=== PATIENT | male | born 1970 | race Caucasian/White ===

== ENCOUNTER 2016-05-20 07:49 | Observation (INO) | payer BC ==
--- NOTE | 2016-05-03 14:46 | DIAGNOSTIC IMAGING REPORT ---
CHEST 2 VIEWS ROUTINE CLINICAL HISTORY: PRE OP TESTING preoperative evaluation COMPARISON STUDY: 11/16/2015 FINDINGS: The bones soft tissues and hemidiaphragms are normal. The cardiomediastinal silhouette is normal. The lungs are clear. The pulmonary vasculature is normal. IMPRESSION: Negative chest. Electronically signed by: Sylvain Snow M.D. 05/03/2016 2:44 PM Dictated Date/Time: 05/03/2016 2:44 PM
[2016-05-03 15:31] LABS: BASO % 0.3 %; BASO ABS # 0.02 K/uL (0-0.2); COMPLETE YES; EOS % 1.5 %; HEMATOCRIT 42.3 % (42-52); IG% 0.6 %; LYMPH % 31.6 %; LYMPH ABS # 2.16 K/uL (1.2-3.4); MEAN CELL VOLUME 86.3 fL (80-100); MEAN CORPUSCULAR HEMOGLOBIN 29.4 pg (25-34); MEAN PLATELET VOLUME 9.6 fL (7.4-10.4); MONO % 4.7 %; NEUT % 61.3 %; PLATELET COUNT 240 K/uL (130-400); WHITE BLOOD COUNT 6.83 K/uL (4.8-10.8)
[2016-05-08 10:32] VITALS: BMI 32.0
--- NOTE | 2016-05-16 12:26 | HISTORY & PHYSICAL EXAMINATION ---
DATE OF ADMISSION: 05/20/2016 CHIEF COMPLAINT: Back and lower extremity difficulty, right leg numbness and tingling 4 months in duration without true injury. HISTORY OF PRESENT ILLNESS: Preston is a 45-year-old gentleman, we initially saw him saw him several weeks ago. He had MRI scan performed, he has discogenic issues, he has back and lower extremity difficulties. He has had injections to his spine. He was here to see me in the office a few weeks ago with back and lower extremity difficulties, particularly on the right hand side. He does walk with a limp. He has adequate reflexes. PAST MEDICAL HISTORY: Positive for spine difficulties, low back difficulties. No kidney, liver issues. No carcinoma. No difficulty with anaesthesia. Denies any abnormal EKG changes, shortness of breath, nausea, vomiting, diabetes, or anemia. He admits to anxiety and numbness, tingling. PAST SURGICAL HISTORY: Shoulder and knee surgery, hernia repair, appendectomy, vasectomy, varicocele. ALLERGIES: RANITIDINE. MEDICATIONS: Include ibuprofen, hydrocodone. SOCIAL HISTORY: Minimal alcohol, no cigarette smoking. REVIEW OF SYSTEMS: Denies blurred vision, double vision, tinnitus, vertigo. Denies any chest pain, angina, palpitations. Denies asthma, wheezing. No nausea, vomiting, urgency, frequency, dysuria. OBJECTIVE: GENERAL: He is alert, oriented, mentation normal. VITAL SIGNS: Blood pressure 130/80, pulse of 80, respiratory rate 16. HEAD, EYES, EARS, NOSE, AND THROAT EXAMINATION: Normal. Skin intact. No adenopathy. HEART: Normal S1, S2. Distant S3. LUNGS: Clear to auscultation. No rales, rhonchi or wheezing. ABDOMEN: Soft, nontender, bowel sounds present. EXTREMITIES: He has pain with straight leg raising on the right hand side, none on the left hand side. He walks with a limp. Knee jerk reflexes and Achilles reflexes 2/4 right and left. No motor loss. No clonus or signs of upper motor neuron issues. Images reviewed demonstrate degenerative changes L4-L5, L5-S1, disc herniation L4-L5 and L5-S1 lumbar spine. DISPOSITION: Laminectomy and decompression L4-L5 and L5-S1 lumbar spine under general anesthetic [facility]. [facility]
[~2016-05-20] VITALS: Ht 172.7 cm; Wt 95.5 kg
[2016-05-20] VITALS (7 sets, daily range): BP systolic 113–134; BP diastolic 79–91; PULSE 76–103; TEMP 36.4–36.8; O2SAT 92–96; Ht 172.7 cm; Wt 95.5 kg
[~2016-05-20 07:49] MED LIST: BUPR-267 PO; CEFAZOLIN 2000 MG/60 ML D5W 60 ML IV SCH; IBUP-1451 PO; LACTATED RINGER'S 1000ML 1,000 ML IV SCH; NSS 1000ML IV SCH; VENL75CA PO
[2016-05-20] MEDS ORDERED: NEOSTIGMINE METHYLSULFATE 5 MG/5 ML SYR ONE (08:04)
[2016-05-20] MEDS ORDERED: MIDAZOLAM HCL 1 MG/ML 2ML VIAL ONE (08:04)
[2016-05-20] MEDS ORDERED: FENTANYL CITRATE INJ 50 MCG/1 ML 2 ML VIAL ONE ×2 (08:04→11:38)
[2016-05-20] MEDS ORDERED: ONDANSETRON INJ 2 MG/ML 2 ML VIAL ONE (08:04)
[2016-05-20] MEDS ORDERED: ROCURONIUM BROMIDE 10 MG/ML 5 ML VIAL ONE (08:04)
[2016-05-20] MEDS ORDERED: LIDOCAINE HCL 2% 2 ML VIAL (20MG/ML) ONE (08:04)
[2016-05-20] MEDS ORDERED: GLYCOPYRROLATE INJ 0.2 MG/ML VIAL ONE (08:04)
[2016-05-20] MEDS ORDERED: DEXAMETHASONE SOD INJ 4 MG/ML VIAL ONE (08:04)
[2016-05-20] MEDS ORDERED: ONDANSETRON INJ 2 MG/ML 2 ML VIAL IV PRN ×2 (08:45→12:45)
[2016-05-20] MEDS ORDERED: EpHEDrine SULFATE INJ 50 MG/ML AMP IV PRN (08:45)
[2016-05-20] MEDS ORDERED: HYDROmorphone INJ 1 MG/ML SYR IV PRN ×3 (08:45→12:45)
[2016-05-20] MEDS ORDERED: ATROPINE SULFATE 0.1 MG/ML 5ML SYR IV PRN (08:45)
[2016-05-20] MEDS ORDERED: PROMETHAZINE HCL INJ 6.25 MG in SODIUM CHLORIDE 0.9% 50ML 50 ML IV PRN (08:45)
[2016-05-20] MEDS ORDERED: GELATIN SPONGE SZ 100 ONE ×2 (10:08→10:11)
[2016-05-20] MEDS ORDERED: VANCOMYCIN HCL 1000MG/20ML VIAL ONE (10:08)
[2016-05-20] MEDS ORDERED: BUPIVACAINE/EPINEPHRINE 0.5% MPF 1:200,000 30 ML VIAL ONE (10:08)
[2016-05-20] MEDS ORDERED: THROMBIN FOR SOLN 20000 UNIT KIT ONE (10:08)
[2016-05-20] MEDS ORDERED: BACITRACIN 50000 UNIT VIAL ONE (10:09)
--- NOTE | 2016-05-20 10:39 | History & Physical Bridge Note ---
H&P Re-Evaluation Bridge Note: I have examined the patient, reviewed the History & Physical and in the interval since the performance of the History & Physical I have noted the following changes of clinical significance: No changes noted
--- NOTE | 2016-05-20 12:30 | DIAGNOSTIC IMAGING REPORT ---
Intraoperative lumbar spine single view CLINICAL HISTORY: L4-S1 LAMINECTOMY AND DISCECTOMY COMPARISON STUDY: No previous studies for comparison. FINDINGS: 1 seconds of fluoroscopic time was utilized. A single intraoperative fluoroscopic spot image is provided for interpretation. This reveals a surgical instrument projected over the posterior elements at the L5 level. IMPRESSION: Intraoperative fluoroscopic spot image for localization purposes. Electronically signed by: Saroj Thompson M.D. 05/20/2016 12:29 PM Dictated Date/Time: 05/20/2016 12:28 PM
--- NOTE | 2016-05-20 12:39 | [facility] Post Operative Brief Note ---
Immediate Operative Summary Operative Date May 20, 2016. Pre-Operative Diagnosis Disc Herniation L4-L5, Degenerative changes L4-S1 Post-Operative Diagnosis Disc Herniation L4-L5, Degenerative changes L4-S1 Procedure(s) Performed L4-L5, L5-S1 Laminectomy and Discectomy Surgeon Dr. Lord [employer] Supervisor Surgeon(s) Varun Ye PA-C Estimated Blood Loss 100 ml Findings 2 level lumbar herniation Specimens none per surgeon Complication(s) None Disposition Recovery Room / PACU
[2016-05-20] MEDS: FENTANYL CITRATE INJ 50 MCG/1 ML 2 ML VIAL IV PRN ×4 (12:42→12:57)
[2016-05-20] MEDS ORDERED: METOCLOPRAMIDE HCL INJ 5 MG/ML 2 ML VIAL IV PRN (12:45)
[2016-05-20] MEDS ORDERED: MAGNESIUM HYDROXIDE SUSP 30 ML UDC PO PRN (12:45)
[2016-05-20] MEDS ORDERED: LORAZEPAM 1 MG TAB PO PRN (12:45)
[2016-05-20] MEDS ORDERED: PROMETHAZINE HCL INJ 12.5 MG in SODIUM CHLORIDE 0.9% 50ML 50 ML IV PRN (12:45)
[2016-05-20] MEDS ORDERED: HYDROCODONE/ACETAMOPHEN 5/325MG TAB PO PRN (12:45)
[2016-05-20] MEDS ORDERED: ACETAMINOPHEN 325 MG TAB PO PRN (12:45)
[2016-05-20] MEDS ORDERED: OXYCODONE/ACETAMINOPHEN 5-325 TAB PO PRN (12:45)
[2016-05-20] MEDS ORDERED: LORAZEPAM INJ 1 MG in SYRINGE 0 ML IV PRN (12:45)
[2016-05-20 13:17] LABS: HEMATOCRIT 43.8 % (42-52)
--- NOTE | 2016-05-20 14:10 | OPERATIVE REPORT ---
DATE OF OPERATION: 05/20/2016 PREOPERATIVE DIAGNOSIS: Disk herniation L4-L5 and L5-S1. No instability. POSTOPERATIVE DIAGNOSIS: Same. PROCEDURES: Included a right-sided L4-L5 discectomy, left-sided L5-S1 discectomy, foraminotomy, partial facetectomy at each level. SURGEON: Dr. Lord. SILVER SERVICE WAITER: Varun Ye PA-C. COMPLICATIONS: Zero. BLOOD LOSS: 100 mL. DESCRIPTION OF PROCEDURE: The patient was taken to the operating room, a general intubated anesthetic provided to the patient, placed prone, prepped and draped sterile. We made a skin incision dissecting the soft tissue, fascial incision, put in a deep self-retaining retractor. We focused at the L4-L5 interval. We kept to the right side only. We preserved all central structures. We did an upgoing partial laminotomy on the right and foraminotomy on the right hand side. We also retracted the dura nerve root in medial direction, we did a formal discectomy at the L4-L5 level. We then went down to the L5-S1 level and did a laminotomy, foraminotomy, partial facetectomy as well. We cleaned out all compressive issues. We used different types of pituitary rongeurs at each and every level, clearing out the disc interspaces. I did not sense any instability. We irrigated thoroughly, closed over some vancomycin powder and a Hemovac drain with 1 Vicryl suture, 2-0 on the subcuticular layer, 3-0 nylon on the skin. Sterile dressings applied. The patient returned to PACU stable. No apparent interoperative complications. Sponge and needle count correct at the close. I attest to the content of the Intraoperative Record and any orders documented therein. Any exceptio ns are noted below.
[2016-05-20] MEDS ORDERED: IV FLUIDS COMPLETED PRN (14:15)
--- NOTE | 2016-05-20 14:17 | Anesthesiology Progress Note ---
Anesthesia Post Op Note Date & Time May 20, 2016 at 14:17 Vital Signs Pain Intensity: 6.0 Vital Signs Past 12 Hours Date Time Temp Pulse Resp B/P Pulse Ox O2 Delivery O2 Flow Rate FiO2 05/20/16 13:40 92 Nasal Cannula 4.0 05/20/16 13:40 92 Nasal Cannula 4.0 05/20/16 13:40 36.7 101 16 128/90 92 Nasal Cannula 4.0 05/20/16 13:26 100 15 93 05/20/16 13:26 100 15 110/93 05/20/16 13:25 117/82 05/20/16 13:25 36.9 117/82 05/20/16 13:21 105 15 05/20/16 13:21 105 15 93 05/20/16 13:21 105 15 05/20/16 13:21 105 15 93 05/20/16 13:20 149/100 05/20/16 13:20 149/100 05/20/16 13:16 104 12 94 05/20/16 13:16 104 12 94 05/20/16 13:16 105 12 05/20/16 13:16 105 12 05/20/16 13:15 110/96 05/20/16 13:15 110/96 05/20/16 13:12 90/55 05/20/16 13:12 90/55 05/20/16 13:11 113 16 88 05/20/16 13:11 113 16 05/20/16 13:11 113 16 05/20/16 13:11 113 16 88 05/20/16 13:10 109 17 05/20/16 13:10 108 17 92 05/20/16 13:05 105 18 05/20/16 13:05 105 18 129/105 92 05/20/16 13:02 135/96 05/20/16 13:00 113 15 05/20/16 13:00 112 15 140/114 94 05/20/16 13:00 Nasal Cannula 4 05/20/16 12:55 97 15 137/102 94 05/20/16 12:55 98 15 05/20/16 12:50 93 12 05/20/16 12:50 93 12 159/129 93 05/20/16 12:45 95 16 05/20/16 12:45 96 16 151/105 93 05/20/16 12:42 143/103 05/20/16 12:40 104 16 05/20/16 12:40 103 16 144/114 93 05/20/16 12:39 175/126 05/20/16 12:35 37 115 18 175/126 95 Mask 10 05/20/16 08:31 36.8 76 20 134/87 96 Room Air Notes Mental Status: alert / awake / arousable, participated in evaluation Pt Amnestic to Procedure: Yes Nausea / Vomiting: adequately controlled Pain: adequately controlled Airway Patency, RR, SpO2: stable & adequate BP & HR: stable & adequate Hydration State: stable & adequate Anesthetic Complications: no major complications apparent
[2016-05-20] MEDS: SODIUM CHLORIDE 0.9% 1000ML 1,000 ML IV SCH (14:31)
[2016-05-20] MEDS: OXYCODONE/ACETAMINOPHEN 5-325 TAB PO PRN (14:36)
[2016-05-20] MEDS: DEXAMETHASONE INJ 10 MG in SYRINGE 0 ML IV SCH ×2 (14:42→21:49)
[2016-05-20] MEDS: KETOROLAC TROMETHAMINE 30 MG/ML VIAL IV SCH ×2 (15:32→21:49)
[2016-05-20] MEDS: CEFAZOLIN IV 2,000 MG in DEXTROSE 5% 50ML 50 ML IV SCH (18:26)
[2016-05-21] MEDS: SODIUM CHLORIDE 0.9% 1000ML 1,000 ML IV SCH (00:03)
[2016-05-21] MEDS: CEFAZOLIN IV 2,000 MG in DEXTROSE 5% 50ML 50 ML IV SCH ×2 (03:29→10:37)
[2016-05-21] MEDS: KETOROLAC TROMETHAMINE 30 MG/ML VIAL IV SCH ×4 (03:30→17:44)
[2016-05-21 04:10] VITALS: BP 117/82; PULSE 83; TEMP 36.3; O2SAT 91
[2016-05-21] MEDS: DEXAMETHASONE INJ 10 MG in SYRINGE 0 ML IV SCH ×3 (05:58→21:49)
[2016-05-21] MEDS ORDERED: BISACODYL 5 MG TABEC PO PRN (06:00)
[2016-05-21] MEDS ORDERED: NURSING VERBAL MED ORDER ONE (06:00)
[2016-05-21] MEDS ORDERED: BISACODYL 10 MG SUPP PR PRN (06:00)
--- NOTE | 2016-05-21 07:35 | Discharge Instructions ---
Discharge Instructions Date of Service May 21, 2016. Admission Reason for Admission: Lumbar Disc Herniation Discharge Discharge Diagnosis / Problem: stenosis Discharge Goals Goal(s): Improve function Activity Recommendations Activity Limitations: as noted below Lifting Limitations: gradually increase as tolerated Exercise/Sports Limitations: until after follow-up appointment May Resume Sexual Activity: after follow-up appointment Shower/Bathe: keep incision dry Driving or Machine Use: home and recover . Instructions / Follow-Up Instructions / Follow-Up MEDICATIONS: Please take your prescriptions as instructed at your pre-op appointment. SPECIAL CARE: The following information is intended to answer some of the common questions and concerns regarding your surgery. Each patient is an individual and receives individual counselling throughout the course of treatment, from diagnosis to surgery all the way through recovery. What follows is not an exhaustive list, but should be a useful guide to some of the common questions and concerns patients have regarding their surgeries. These are not provided to keep you from calling us; rather, they give you something accurate and concrete to reference as you recover from your procedure. If you need us, we are available to you. As always, if you are not sure about something, call us at [phone]. MEDICAL EMERGENCIES: For these conditions, call 911 or go to your local hospital-based Emergency Department - not [facility] or equivalent. * Paralysis * Severe chest pain or difficulty breathing * Swelling or redness of either leg Spine procedures can be rather complex and though complications are rare, they do occur. In such cases, effective advice regarding emergency situations cannot always be addressed over the telephone. You may be referred to the emergency department for more effective management of your problem. Activity Limitations: It is important to give your body time to heal, so please limit your activities : * In general, don't do anything that moves your spine too much. You should avoid contact sports, twisting or heavy lifting while you recover. * 5-10 pounds is all you should attempt to lift. * You should not plan on driving for approximately 3 weeks and you should avoid traveling more than 30-45 minutes at a time. Longer trips should be broken down with walking breaks spaced appropriately. * Physical therapy is not usually required. * Walking and good posture practices will help you recover and regain your function. * Avoid straining or sudden changes in position. * In general, the goal is to take it easy and recover. Don't cause any new problems. Just relax. Showers: * Do not take a bath, use a Jacuzzi or hot tub or otherwise submerge your incision. * It is usually safe to take a shower 4-5 days after your surgery. * Your incision does not require any special creams or ointments. * Simply clean it with soap and water, dry and re-dress with a clean bandage afterwards. Incision: * Keep incision clean, dry and protected until your first follow-up appointment. * Some amount of drainage and redness is normal. Any drainage should be fairly clear and not have a foul odor. * If you feel anything is wrong or you have excessive drainage, please call us. * Your stitches and lacie will be removed 10-14 days after your surgery. At the time of your first post-op visit. * Neck surgeries are typically closed with a suture underneath the skin. The steri-strips over the incision should be maintained until we see you in the office. Bracing: * You may be provided with a back or neck brace to encourage good posture and prevent injury. It will remind you not to do too much as you heal and will alert others to the fact that you have had a surgery. * Back braces may be removed for showers and when you are resting at home. They must be worn when you are walking around for any period of time or for travel. * For neck surgery, you will likely be provided with two cervical collars. The soft collar ([place] or foam rubber) is worn most commonly throughout the day and while sleeping. The plastic collar (provided at the hospital) is for showering/bathing. * Except while eating, collars should remain in place. More specifically, bracing is provided for a purpose and should be worn. * Please obtain your brace or collars prior to your operation and bring them to the hospital with you on the day of surgery. * You should also bring your collars to your post-op appointment with Dr. Lord. You should always take good care of your body and practice healthy habits, especially following surgery. You should: * Follow your doctor's treatment plan * Sit and stand properly with good posture (ears over shoulders, shoulders over hips) Don't slouch * Learn to lift correctly * Exercise regularly (low-impact aerobic exercise is especially good, but check with your doctor first) * Generally, be up and walking for 5-10 minutes at a time at least 3-4 times per day from the day you get home * Increasing walking to tolerance until you can walk for 20-30 minutes at a time * Attain and maintain a healthy body weight * Eat healthy foods ( a well-balanced, low-fat diet rich in fruits and vegetables) and get enough calcium * Avoid excessive use of alcohol When to call our office - If you notice any of the following: * Increased pain not relieve by pain medicine * Fevers greater then 100 degrees F, chills or flu symptoms * Increased redness around incision * Drainage from the incision that is not clear * Any foul smelling drainage * Swelling or fluid collection beneath the skin Miscellaneous: * In the hospital, you may be given a walker or cane for support while walking. These are temporary needs and are intended to prevent injuries due to falls. You may discontinue them when you feel strong and steady enough on your feet. * Sleep in a comfortable position. We find that many patients find a lounge chair or recliner with several pillows to be beneficial in the early post-operative period. * The support stockings should be used for 7-10 days and may be discontinued when you are back to walking more and conducting usual household activities. No problem is insignificant. We are here to help you and get you well. Contact us at [phone]. Definitions: Foraminotomy: If part of the disc or a bone spur (osteophyte) is pressing on a nerve as it leaves the vertebra (through an exit called the foramen), a foraminotomy may be done. Otomy means "to make an opening." A foraminotomy is making the opening of the foramen larger, so the nerve can exit without being compressed. Laminotomy: Similar to the foraminotomy, a laminotomy makes a larger opening, this time in your bony plate protecting your spinal canal and spinal cord (the lamina). The lamina may be pressing on your nerve, so the surgeon may make more room for the nerves using a laminotomy. Laminectomy: Sometimes, a laminotomy is not sufficient. The surgeon may need to remove all or part of the lamina. This procedure is called a laminectomy. This can often be done at many levels without any harmful effects. Current Hospital Diet Patient's current hospital diet: Regular Diet Discharge Diet Recommended Diet: Regular Diet Fluid Restriction: None Procedures Procedures Performed: L4-L5, L5-S1 Laminectomy and Discectomy Pending Studies Studies pending at discharge: no Medical Emergencies . Who to Call and When: Medical Emergencies: If at any time you feel your situation is an emergency, please call 911 immediately. . Non-Emergent Contact Non-Emergency issues call your: Surgeon Call Non-Emergent contact if: wound has increased pain . "Provider Documentation" section prepared by Juarez Lord. VTE Core Measure Inpt VTE Proph given/why not?: Treatment not indicated
--- NOTE | 2016-05-21 07:43 | PROGRESS NOTE ---
DATE: 05/21/2016 SUBJECTIVE: Moderate complaints of pain and some urinary retention. Alert and oriented. OBJECTIVE: Vital signs are stable. Decreased bowel sounds. No shortness of breath. ASSESSMENT: Status post two-level lumbar spine laminectomy, discectomy L4-L5 and L5-S1. DISPOSITION: We will Preston up today with physical therapy. Once he passes physical therapy, we should be able to get him home tomorrow morning, which would be the .
[2016-05-21 07:58] VITALS: BP 130/88; PULSE 76; TEMP 36.4; O2SAT 91
[2016-05-21] MEDS: BuPROPion SR 150 MG TABCR PO SCH (09:02)
[2016-05-21] MEDS: POLYETHYLENE (MIRALAX) 17 GM PACK PO SCH (09:03)
[2016-05-21] MEDS: VENLAFAXINE HCL XR 75 MG CAPXR PO SCH (09:03)
[2016-05-21 09:40] VITALS: BP 128/83; PULSE 85; O2SAT 94
[2016-05-21] MEDS: OXYCODONE/ACETAMINOPHEN 5-325 TAB PO PRN ×2 (10:35→17:44)
--- NOTE | 2016-05-21 10:49 | Anesthesiology Progress Note ---
Anesthesia Post Op Note Date & Time May 21, 2016 at 10:49 Vital Signs Pain Intensity: 5.0 Vital Signs Past 12 Hours Date Time Temp Pulse Resp B/P Pulse Ox O2 Delivery O2 Flow Rate FiO2 05/21/16 08:05 Room Air 05/21/16 07:58 36.4 76 18 130/88 91 Room Air 05/21/16 04:10 36.3 83 18 117/82 91 Room Air 05/21/16 00:00 Room Air 05/20/16 22:55 36.4 98 16 113/79 92 Room Air Notes Mental Status: alert / awake / arousable, participated in evaluation Pt Amnestic to Procedure: Yes Nausea / Vomiting: adequately controlled Pain: adequately controlled Airway Patency, RR, SpO2: stable & adequate BP & HR: stable & adequate Hydration State: stable & adequate Anesthetic Complications: no major complications apparent
[2016-05-21 12:35] VITALS: BP 131/76; PULSE 83; TEMP 36.5
[2016-05-21 16:10] VITALS: BP 132/92; PULSE 94; TEMP 36.4; O2SAT 94
[2016-05-21] MEDS ORDERED: IBUPROFEN 800 MG TAB PO PRN (21:00)
[2016-05-21 23:15] VITALS: BP 118/73; PULSE 87; TEMP 36.4; O2SAT 92
[2016-05-22 03:35] VITALS: BP 108/69; PULSE 76; TEMP 36.4; O2SAT 95
[2016-05-22 07:15] VITALS: BP 132/94; PULSE 76; TEMP 36.4; O2SAT 95
[2016-05-22] MEDS: POLYETHYLENE (MIRALAX) 17 GM PACK PO SCH (07:44)
[2016-05-22] MEDS: BuPROPion SR 150 MG TABCR PO SCH (07:44)
[2016-05-22] MEDS: VENLAFAXINE HCL XR 75 MG CAPXR PO SCH (07:44)
[2016-05-22 07:45] VITALS: BP 132/94; PULSE 76; TEMP 36.4; O2SAT 95
[2016-05-22] MEDS: OXYCODONE/ACETAMINOPHEN 5-325 TAB PO PRN (07:45)
--- NOTE | 2016-05-22 08:20 | DISCHARGE SUMMARY ---
SUBJECTIVE: Minimal complaints of pain. Alert, oriented. Denies any shortness of breath, chest pain, calf tenderness. OBJECTIVE: 36.4 temperature, pulse 76, hemoglobin 15.0. ASSESSMENT: Status post lumbar spine surgery, improved, stable short run. DISPOSITION: Instructions, precautions, education. Discharged home later today. Dressing change. He has prescriptions on his chart. We should see him back in the office in approximately 10 days.
== END 2016-05-22 09:53 | disposition home or self-care (01) ==
LOC: ENRESERVTM → ENRESERVDT → C.ACU 07:49 → INTOOBSV 12:40 → C.3E 12:40
PROVIDERS: ADMIT Orthopaedic Surgery Orthopaedic Surgery of the Spine; ATTEND Orthopaedic Surgery Orthopaedic Surgery of the Spine
DX: M51.27 Other intervertebral disc displacement, lumbosacral region (principal); M51.26 Other intervertebral disc displacement, lumbar region

== ENCOUNTER 2016-07-16 11:49 | Emergency (ER) | payer BC ==
[~2016-07-16] VITALS: Ht 172.7 cm; Wt 100.0 kg
[~2016-07-16 11:49] MED LIST changes: -CEFAZOLIN 2000 MG/60 ML D5W 60 ML IV SCH; -LACTATED RINGER'S 1000ML 1,000 ML IV SCH; -NSS 1000ML IV SCH
[2016-07-16 11:52] VITALS: TEMP 36.3; Ht 172.7 cm; Wt 100.0 kg
[2016-07-16] MEDS ORDERED: ONDANSETRON INJ 2 MG/ML 2 ML VIAL IV STA (12:09)
[2016-07-16] MEDS ORDERED: SODIUM CHLORIDE 0.9% 1000ML 1,000 ML IV STA (12:09)
--- NOTE | 2016-07-16 12:13 | EMERGENCY ROOM VISIT NOTE ---
History Report prepared by Caryl: Zaina Mejia Under the Supervision of: Dr. Melvin Swanson D.O. First contact with patient: 12:02 Chief Complaint: BACK PAIN Stated Complaint: BACK PAIN-SURG. END OF APRIL-POP IN BACK History of Present Illness The patient is a 46 year old male who presents to the Emergency Room with complaints of worsening lower back pain beginning just prior to arrival. The patient was throwing a bag into the washing machine when he stood up and felt a pop in his back. He notes that he experienced back surgery on May [address] Lord. He had two herniated disc at L4-L5. The patient states that he called Dr. Lord office and was told to come to the ED. He denies numbness in legs, fever, nausea or vomiting. 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 A total of 10 systems reviewed and were otherwise negative. Past Medical & Surgical Medical Problems: (1) Depression (2) Lumbar disc disease with radiculopathy (3) S/P hernia repair (4) Ureterolithiasis Surgical Problems: (1) S/P appendectomy Family History No significant family history Social History Smoking Status: Never Smoker Alcohol Use: none Drug Use: none Marital Status: Housing Status: lives with family Occupation Status: employed Current/Historical Medications Scheduled Bupropion Hcl (Bupropion Hcl Er), 150 MG PO QAM Omeprazole (Prilosec), 20 MG PO DAILY Prednisone (Prednisone Tab), 40 MG PO DAILY Venlafaxine Hcl (Effexor Xr), 4 CAP PO QAM Scheduled PRN Ibuprofen Tab (Motrin), 800 MG PO Q12 PRN for Pain Oxycodone Immediate Rel Tab (Roxicodone Ir), 10 MG PO Q4H PRN for Severe Pain Allergies Coded Allergies: Ranitidine (Verified Adverse Reaction, Intermediate, chest pain, 05/20/16) Physical Exam Vital Signs Date Time Temp Pulse Resp B/P Pulse Ox O2 Delivery O2 Flow Rate FiO2 07/16/16 15:52 94 Nasal Cannula 2.0 07/16/16 15:40 78 18 149/96 88 Room Air 07/16/16 13:41 78 18 143/102 96 07/16/16 11:52 36.3 91 18 154/99 94 Room Air Physical Exam GENERAL: Patient is awake, alert, very anxious and appearing to be uncomfortable. EARS, NOSE, MOUTH AND THROAT: The nose is without any evidence of any deformity. Mucous membranes are moist tongue is midline NECK: The neck is nontender and supple. RESPIRATORY: Normal respiratory effort is noted there is no evidence of wheezing rhonchi or rales CARDIOVASCULAR: Regular rate and rhythm noted there no murmurs rubs or gallops normal S1 normal S2 GASTROINTESTINAL: The abdomen is soft. Bowel sounds are present in all quadrants. Abdomen is nontender BACK: Low lumbar tenderness to palpation, range of motion illicit to pain, palpation site noted, no drainage or erythema. MUSCULOSKELETAL/EXTREMITIES: There is no evidence of gross deformity full range of motion is noted in the hips and shoulders SKIN: There is no obvious evidence of any rash. There are no petechiae, pallor or cyanosis noted. NEUROLOGIC: Patient is awake alert and oriented x3 strength is symmetric patellar reflexes are 2+ bilaterally, Achilles tendon reflex +2 bilaterally, great toe strength symmetric. Medical Decision & Procedures ER Provider Diagnostic Interpretation: MRI results as stated below per my review and radiologist interpretation. LUMBAR SPINE MRI HISTORY: Back pain severe LBP, sent by ortho TECHNIQUE: Multiplanar multisequence MRI of the lumbar spine was performed without the use of contrast. COMPARISON: None FINDINGS: For the purpose of the report the L5-S1 disc space will be located on axial image 23 of 25. Moderate degenerative disc change L4-L5 and L5-S1. Mass consistent with posterior laminectomy the L4-L5 level. L1-L2: No significant central canal or neural foraminal narrowing. L2-L3: No significant central canal or neural foraminal narrowing. L3-L4: Mild left central disc bulge. Minimal impact anterior aspect of the thecal sac on the left. L4-L5: Right posterior hemilaminotomy. Right central disc herniation with moderate impact anterior aspect thecal sac. Neuroforamina show minimal narrowing bilaterally. L5-S1: Left posterior hemilaminotomy. Mild broad-based disc herniation. Minimal impact anterior thecal sac. IMPRESSION: 1. Findings consistent with posterior hemilaminotomies at L4-L5 and L5-S1 2. Right central disc herniation L4-L5 with moderate impact anterior thecal sac 3. Broad-based disc herniation considered mild L5-S1. Electronically signed by: Sylvain Snow M.D. 07/16/2016 3:44 PM Dictated Date/Time: 07/16/2016 3:39 PM Laboratory Results 07/16/16 12:34 Red Blood Count 5.22, Mean Corpuscular Volume 89.5, Mean Corpuscular Hemoglobin 29.5, Mean Corpuscular Hemoglobin Concent 33.0, Mean Platelet Volume 9.9, Neutrophils (%) (Auto) 51.2, Lymphocytes (%) (Auto) 39.2, Monocytes (%) (Auto) 7.1, Eosinophils (%) (Auto) 1.6, Basophils (%) (Auto) 0.5, Neutrophils # (Auto) 2.83, Lymphocytes # (Auto) 2.17, Monocytes # (Auto) 0.39, Eosinophils # (Auto) 0.09, Basophils # (Auto) 0.03 07/16/16 12:34 Test 07/16/16 12:34 White Blood Count 5.53 K/uL (4.8-10.8) Red Blood Count 5.22 M/uL (4.7-6.1) Hemoglobin 15.4 g/dL (14.0-18.0) Hematocrit 46.7 % (42-52) Mean Corpuscular Volume 89.5 fL (80-100) Mean Corpuscular Hemoglobin 29.5 pg (25-34) Mean Corpuscular Hemoglobin Concent 33.0 g/dl (32-36) Platelet Count 246 K/uL (130-400) Mean Platelet Volume 9.9 fL (7.4-10.4) Neutrophils (%) (Auto) 51.2 % Lymphocytes (%) (Auto) 39.2 % Monocytes (%) (Auto) 7.1 % Eosinophils (%) (Auto) 1.6 % Basophils (%) (Auto) 0.5 % Neutrophils # (Auto) 2.83 K/uL (1.4-6.5) Lymphocytes # (Auto) 2.17 K/uL (1.2-3.4) Monocytes # (Auto) 0.39 K/uL (0.11-0.59) Eosinophils # (Auto) 0.09 K/uL (0-0.5) Basophils # (Auto) 0.03 K/uL (0-0.2) RDW Standard Deviation 41.7 fL (36.4-46.3) RDW Coefficient of Variation 12.8 % (11.5-14.5) Immature Granulocyte % (Auto) 0.4 % Immature Granulocyte # (Auto) 0.02 K/uL (0.00-0.02) Anion Gap 5.0 mmol/L (3-11) Est Creatinine Clear Calc Drug Dose 94.1 ml/min Estimated GFR () 91.5 Estimated GFR (Non- 79.0 BUN/Creatinine Ratio 18.2 (10-20) Calcium Level 8.9 mg/dl (8.5-10.1) Total Bilirubin 0.4 mg/dl (0.2-1) Direct Bilirubin < 0.1 mg/dl (0-0.2) Aspartate Amino Transf (AST/SGOT) 21 U/L (15-37) Alanine Aminotransferase (ALT/SGPT) 34 U/L (12-78) Alkaline Phosphatase 57 U/L (45-117) Total Protein 7.5 gm/dl (6.4-8.2) Albumin 4.0 gm/dl (3.4-5.0) Lipase 325 U/L (73-393) Laboratory results per my review. Medications Administered Medications (Trade) Dose Ordered Sig/Laurie Route Start Time Stop Time Status Last Admin Dose Admin Sodium Chloride (Nss 1000ml) 1,000 ml @ 200 mls/hr Q5H STAT IV 07/16/16 12:09 07/16/16 17:08 07/16/16 12:52 200 MLS/HR Morphine Sulfate (MoRPHine SULFATE INJ) 4 mg Q15M PRN IV 07/16/16 12:15 07/30/16 12:14 07/16/16 15:47 4 MG Ondansetron HCl (Zofran Inj) 4 mg NOW STAT IV 07/16/16 12:09 07/16/16 12:11 DC 07/16/16 12:53 4 MG Dexamethasone Sodium Phosphate (Decadron Inj) 10 mg NOW ONCE IV 07/16/16 12:15 07/16/16 12:16 DC 07/16/16 12:53 10 MG Hydromorphone HCl (Dilaudid Inj) 1 mg Q30M PRN IV 07/16/16 13:30 07/30/16 13:29 07/16/16 14:43 1 MG ED Course 1205: The patient was evaluated in room B3. A complete history and physical examination were performed. 1209: Zofran Inj 4 mg IV, Sodium Chloride 1,000 ml @ 200 mls/hr IV. 1215: Decadron Inj 10 mg IV, Morphine Sulfate Inj 4 mg IV. 1330: Dilaudid Inj 1 mg IV. 1607: I spoke with Dr. Lord - Orthopedic Surgery about the patient. He recommends pain management and a course of steroids. He will follow up with the patient in the office this week. 1625: Upon reevaluation, the patient is hemodynamically stable. I discussed the results and treatment plan with him. He verbalized agreement of the treatment plan. He was discharged home. Medical Decision Differential diagnosis: Etiologies such as musculoskeletal, disc herniation, fracture, aortic disease, metastatic disease, cord compression, discitis, infection, renal colic, gastrointestinal, acute exacerbation of chronic back pain, sciatica, cauda equina, as well as others were entertained. Nursing notes reviewed. Patient's previous electronic medical records reviewed. The patient is a 46-year-old male who is 2 months status post lumbar spine surgery for lumbar disc disease. The patient presented to the emergency department with acute low back pain. The pain appears to be localized in the lower lumbar spine. His reflexes were intact. Because of the severity of pain and his recent surgery MRI was obtained. I discussed the patient's laboratory and radiographic studies with him. The patient was treated with IV fluids IV pain medicine and IV antiemetics. On subsequent reevaluation he was feeling much better still had significant pain. I discussed his case with his primary back spinal specialist. At this time I would recommend the patient follow-up with his orthopedic programming specialist this week. He does have a scheduled appointment for Friday and he was encouraged to keep this appointment. He was also encouraged to call in the morning to try to schedule an earlier appointment if symptoms are not significantly improved with rest and conservative methods. The patient was encouraged to rest and avoid any strenuous activity. He was also encouraged to continue all medications as prescribed. He was also encouraged to return to the emergency department immediately if symptoms change worsen or the need arises. [place] Drug Monitoring Program Search Results: patient reviewed within database, no issues identified Consults Time Called: 1605 Consulting Physician: Dr. Lord - Orthopedic Surgery Returned Call: [phone] Lord - Orthopedic Surgery about the patient. He recommends pain management and a course of steroids. He will follow up with the patient in the office this week. Impression Primary Impression: Low back pain Additional Impression: Lumbar disc herniation Scribe Attestation The scribe's documentation has been prepared under my direction and personally reviewed by me in its entirety. I confirm that the note above accurately reflects all work, treatment, procedures, and medical decision making performed by me. Departure Information Dispostion Home / Self-Care Prescriptions Prednisone (Prednisone Tab) 20 Mg Tab 40 MG PO DAILY, #10 TAB Prov: Melvin Swanson, DO 07/16/16 Omeprazole (Prilosec) 20 Mg Capcr 20 MG PO DAILY, #30 CAP Prov: Melvin Swanson, DO 07/16/16 Oxycodone Immediate Rel Tab (ROXICODONE IR) 5 Mg Tab 10 MG PO Q4H Y for Severe Pain, #25 TAB Prov: Melvin Swanson, DO 07/16/16 Referrals Ariane Ortez PA-C (PCP) Forms HOME CARE DOCUMENTATION FORM, IMPORTANT VISIT INFORMATION, Work Instructions Patient Instructions ED Back Pain Acute Chronic, My [facility] Additional Instructions Call your back specialist in the morning to schedule a follow-up appointment for this week. Rest and avoid any strenuous activity. Continue taking Motrin and Tylenol as directed for mild pain. Continue all other medications as prescribed. Problem Qualifiers Primary Impression: Low back pain Chronicity: acute Back pain laterality: bilateral Sciatica presence: without sciatica Qualified Codes: M54.5 - Low back pain
[2016-07-16] MEDS ORDERED: DEXAMETHASONE SOD INJ 10 MG/ML VIAL IV ONE (12:15)
[2016-07-16 12:54] LABS: BASO % 0.5 %; BASO ABS # 0.03 K/uL (0-0.2); COMPLETE YES; EOS % 1.6 %; HEMATOCRIT 46.7 % (42-52); IG% 0.4 %; LYMPH % 39.2 %; LYMPH ABS # 2.17 K/uL (1.2-3.4); MEAN CELL VOLUME 89.5 fL (80-100); MEAN CORPUSCULAR HEMOGLOBIN 29.5 pg (25-34); MEAN PLATELET VOLUME 9.9 fL (7.4-10.4); MONO % 7.1 %; NEUT % 51.2 %; PLATELET COUNT 246 K/uL (130-400); RED BLOOD COUNT 5.22 M/uL (4.7-6.1); WHITE BLOOD COUNT 5.53 K/uL (4.8-10.8)
[2016-07-16] MEDS: MoRPHine SULFATE 4 MG/ML 1 ML CARP\\VIAL IV PRN ×3 (12:54→15:47)
[2016-07-16 13:12] LABS: ALT/SGPT 34 U/L (12-78); AST/SGOT 21 U/L (15-37); BLOOD UREA NITROGEN 20 mg/dl (7-18); BUN/CREATININE RATIO 18.2 (10-20); CALCIUM 8.9 mg/dl (8.5-10.1); CARBON DIOXIDE 29 mmol/L (21-32); CHLORIDE 111 mmol/L (98-107); GLUCOSE 92 mg/dl (70-99); POTASSIUM 4.4 mmol/L (3.5-5.1); SODIUM 145 mmol/L (136-145)
[2016-07-16 13:14] LABS: ALKALINE PHOSPHATASE 57 U/L (45-117)
[2016-07-16] MEDS: HYDROmorphone INJ 1 MG/ML SYR IV PRN ×2 (13:41→14:43)
--- NOTE | 2016-07-16 15:45 | DIAGNOSTIC IMAGING REPORT ---
LUMBAR SPINE MRI HISTORY: Back pain severe LBP, sent by ortho TECHNIQUE: Multiplanar multisequence MRI of the lumbar spine was performed without the use of contrast. COMPARISON: None FINDINGS: For the purpose of the report the L5-S1 disc space will be located on axial image 23 of 25. Moderate degenerative disc change L4-L5 and L5-S1. Mass consistent with posterior laminectomy the L4-L5 level. L1-L2: No significant central canal or neural foraminal narrowing. L2-L3: No significant central canal or neural foraminal narrowing. L3-L4: Mild left central disc bulge. Minimal impact anterior aspect of the thecal sac on the left. L4-L5: Right posterior hemilaminotomy. Right central disc herniation with moderate impact anterior aspect thecal sac. Neuroforamina show minimal narrowing bilaterally. L5-S1: Left posterior hemilaminotomy. Mild broad-based disc herniation. Minimal impact anterior thecal sac. IMPRESSION: 1. Findings consistent with posterior hemilaminotomies at L4-L5 and L5-S1 2. Right central disc herniation L4-L5 with moderate impact anterior thecal sac 3. Broad-based disc herniation considered mild L5-S1. Electronically signed by: Sylvain Snow M.D. 07/16/2016 3:44 PM Dictated Date/Time: 07/16/2016 3:39 PM
[2016-07-16] MEDS ORDERED: OXYC1TAB3 PO (16:12)
[2016-07-16] MEDS ORDERED: PRED20TA2 PO (16:12)
[2016-07-16] MEDS ORDERED: OMEP20CA59 PO (16:12)
[2016-07-16 16:32] VITALS: BP 150/103; PULSE 71; O2SAT 92
== END 2016-07-16 16:46 | disposition home or self-care (01) ==
LOC: C.EDB 11:50
DX: M54.5 Low back pain (principal); Z98.890 Other specified postprocedural states; F32.9 Major depressive disorder, single episode, unspecified; Z87.442 Personal history of urinary calculi; Z79.899 Other long term (current) drug therapy

== ENCOUNTER → 2016-09-05 | Outpatient (CLI) | payer BC ==
[2016-09-05 16:36] LABS: BASO % 0.4 %; BASO ABS # 0.03 K/uL (0-0.2); COMPLETE YES; EOS % 0.6 %; HEMATOCRIT 45.8 % (42-52); IG% 0.5 %; LYMPH % 34.9 %; LYMPH ABS # 2.71 K/uL (1.2-3.4); MEAN CELL VOLUME 87.4 fL (80-100); MEAN CORPUSCULAR HEMOGLOBIN 28.8 pg (25-34); MEAN PLATELET VOLUME 9.9 fL (7.4-10.4); MONO % 6.2 %; NEUT % 57.4 %; PLATELET COUNT 276 K/uL (130-400); RED BLOOD COUNT 5.24 M/uL (4.7-6.1); WHITE BLOOD COUNT 7.76 K/uL (4.8-10.8)
[2016-09-05 17:07] LABS: BLOOD UREA NITROGEN 18 mg/dl (7-18); GLUCOSE 73 mg/dl (70-99)
[2016-09-05 17:08] LABS: BUN/CREATININE RATIO 13.6 (10-20); CALCIUM 9.4 mg/dl (8.5-10.1); CARBON DIOXIDE 26 mmol/L (21-32); CHLORIDE 106 mmol/L (98-107); SODIUM 140 mmol/L (136-145)
== END | disposition home or self-care (01) ==
LOC: C.LAB 15:25
PROVIDERS: ATTEND Orthopaedic Surgery Orthopaedic Surgery of the Spine
DX: Z01.812 Encounter for preprocedural laboratory examination (principal)

== ENCOUNTER 2016-09-30 05:48 | Inpatient (IN) | payer BC ==
[2016-09-03 15:40] VITALS: BMI 32.0
[~2016-09-30] VITALS: Ht 172.7 cm; Wt 95.5 kg
[2016-09-30] VITALS (16 sets, daily range): BP systolic 113–162; BP diastolic 73–113; PULSE 71–123; TEMP 36.4–36.8; O2SAT 88–97; Ht 172.7 cm; Wt 95.5 kg
[2016-09-30] MEDS ORDERED: CEFAZOLIN 2000 MG/60 ML D5W IV SCH (06:00)
[2016-09-30] MEDS ORDERED: LACTATED RINGER'S 1000ML 1,000 ML IV SCH (06:00)
[2016-09-30] MEDS ORDERED: NSS 1000ML IV SCH (06:00)
[2016-09-30] MEDS ORDERED: NEOSTIGMINE METHYLSULFATE 5 MG/5 ML SYR ONE (07:05)
[2016-09-30] MEDS ORDERED: MIDAZOLAM HCL 1 MG/ML 2ML VIAL ONE (07:05)
[2016-09-30] MEDS ORDERED: FENTANYL CITRATE INJ 50 MCG/1 ML 2 ML VIAL ONE ×2 (07:05→11:12)
[2016-09-30] MEDS ORDERED: HYDROmorphone INJ 2 MG/ML SYR/VIAL ONE (07:05)
[2016-09-30] MEDS ORDERED: ONDANSETRON INJ 2 MG/ML 2 ML VIAL ONE (07:05)
[2016-09-30] MEDS ORDERED: LIDOCAINE HCL 2% 2 ML VIAL (20MG/ML) ONE (07:05)
[2016-09-30] MEDS ORDERED: SODIUM CHLORIDE 0.9% INJ 10 ML VIAL ONE (07:05)
[2016-09-30] MEDS ORDERED: LARYING-O-JET KIT (LTA) ONE ×2 (07:05)
[2016-09-30] MEDS ORDERED: DEXAMETHASONE SOD INJ 4 MG/ML VIAL ONE (07:05)
[2016-09-30] MEDS ORDERED: ROCURONIUM BROMIDE 10 MG/ML 5 ML VIAL ONE ×2 (07:05→09:31)
[2016-09-30] MEDS ORDERED: GLYCOPYRROLATE INJ 0.2 MG/ML VIAL ONE ×2 (07:05→09:31)
[2016-09-30] MEDS ORDERED: PROPOFOL IV EMULSION 10 MG/ML 20 ML VIAL IV ONE (07:05)
--- NOTE | 2016-09-30 07:05 | History and Physical ---
History & Physical Date Sep 30, 2016. Chief Complaint Back pain and lower extremity pain instability History of Present Illness The patient is a 46 year old male with complaints of back and lower extremity difficulties. Inability to stand distances walk distances. Pain with flexion- extension and with almost every day activity. Past Medical/Surgical History Medical Problems: (1) Anxiety disorder (2) Depression (3) Dyslipidemia (4) Lumbar disc disease with radiculopathy (5) S/P hernia repair (6) Ureterolithiasis Surgical Problems: (1) S/P appendectomy Additional History Hepatic Disease: No Endocrine Disorder: No Kidney Disease: No Hypertension: No Heart Disease: No Bleeding Tendencies: No Infectious Diseases: No Allergies Coded Allergies: Ranitidine (Verified Adverse Reaction, Intermediate, chest pain, 09/30/16) Home Medications Scheduled Bupropion Hcl (Bupropion Hcl Er), 150 MG PO QAM Venlafaxine Hcl (Effexor Xr), 300 MG PO QAM Scheduled PRN Ibuprofen Tab (Motrin), 800 MG PO Q12 PRN for Pain Physical Examination Skin: warm/dry Eyes: normal inspection ENT: normal ENT inspection Neck: supple Respiratory/Chest: lungs clear Cardiovascular: regular rate, rhythm Abdomen / GI: normal bowel sounds Back: normal inspection Genitourinary - Male: normal male genitalia Neurologic/Psych: no motor/sensory deficits Diagnosis 2 level disc herniations lumbar spine L4 5 5 S1 with 2 level spinal instability ASA Classification: ASA Class III Plan of Treatment Laminectomy and fusion L4 5 and L5-S1
[2016-09-30] MEDS ORDERED: THROMBIN FOR SOLN 20000 UNIT KIT ONE ×2 (07:10→07:12)
[2016-09-30] MEDS ORDERED: GELATIN SPONGE SZ 100 ONE ×3 (07:10→08:57)
[2016-09-30] MEDS ORDERED: BUPIVACAINE/EPINEPHRINE 0.5% MPF 1:200,000 10 ML VIAL ONE (07:11)
[2016-09-30] MEDS ORDERED: VANCOMYCIN HCL 1000MG/20ML VIAL ONE (07:11)
[2016-09-30] MEDS ORDERED: BACITRACIN 50000 UNIT VIAL ONE (07:12)
[2016-09-30] MEDS ORDERED: LABETALOL HCL IV 5 MG/ML 20ML IV PRN (08:15)
[2016-09-30] MEDS ORDERED: ONDANSETRON INJ 2 MG/ML 2 ML VIAL IV PRN ×2 (08:15→11:00)
[2016-09-30] MEDS ORDERED: ATROPINE SULFATE 0.1 MG/ML 5ML SYR IV PRN (08:15)
[2016-09-30] MEDS ORDERED: MINERAL OIL LIGHT 10 ML BTL ONE (09:59)
--- NOTE | 2016-09-30 10:33 | DIAGNOSTIC IMAGING REPORT ---
INTRAOPERATIVE FLUOROSCOPIC IMAGES OF THE SPINE CLINICAL HISTORY: L4-S1 laminectomy and fusion. COMPARISON STUDY: Lumbar spine radiograph June 27, 2016. Fluoroscopy time: 11 seconds. FINDINGS: 2 intraoperative fluoroscopic images demonstrate L4-L5 and L5-S1 discectomies with interbody spacer placement. There is posterior decompression. Pedicle screws at the L4, L5 and S1 levels are noted. IMPRESSION: Fluoroscopic images demonstrating L4-L5 and L5-S1 discectomies and L4-S1 pedicle screw fusion. Electronically signed by: López Tapia M.D. 09/30/2016 10:32 AM Dictated Date/Time: 09/30/2016 10:31 AM
[2016-09-30] MEDS ORDERED: SODIUM CHLORIDE 0.9% 1000ML 1,000 ML IV SCH (10:49)
--- NOTE | 2016-09-30 10:59 | [facility] Operative Report ---
Operative Report Operative Date Sep 30, 2016. Pre-Operative Diagnosis 2 level disc herniations lumbar spine L4 5 5 S1 with 2 level spinal instability Post-Operative Diagnosis 2 level disc herniations lumbar spine L4 5 5 S1 with 2 level spinal instability Procedure(s) Performed Laminectomy and Fusion L4-5, L5-S1 Surgeon Dr. Lord Endorsement Clerk Surgeon(s) Varun Ye PA-C Estimated Blood Loss 690 cc Findings Disc herniation L4 5 and L5-S1 Specimens none per surgeon Complication(s) None Disposition Recovery Room / PACU Indications Two-level spinal pathology L4 5 and L5-S1 Description of Procedure Description of the procedure Surgeon Hong events and promotions assistant Varun Paniagua PAC. Complications 0 sponge and needle count correct at the close of procedure. Donated blood loss 500 mL. She was taken to the operative room a general intubated anesthetic provided to the patient placed prone scrubbed prepped draped sterile. We used the same incision from prior surgery a skin incision fashion incision. We use revision strategies and off the lamina of the sacrum L5 and L4 with perfect visualization. We got pedicle screws into the sacrum 5 and 4 lumbar spine bilaterally. The placement of the pedicle screws we safely decompress the spinal canal with revision strategies strategies. Wrist used curettes and Marilou safely ambulate interbody device at 5 S1 interval back in the dura over doing a complete discectomy L5-S1. We disabled up at L4 5 repair the endplates at the 5 interspace we placed a 9 mm high by device 26 mm in length. 45 interval we are able to get and 11 mm height interbody device I the Hundo and millimeters wide. Interspaces were packed prior to insertion of the interbody device with. Tighten down the construct lordosis was restored. The graft we irrigated with approximately 500 mL of fluid we bone graft other transverse processes the bone was impregnated with vancomycin. Her graft fascia was closed over Hemovac drain and over Gelfoam and over vancomycin powder. This was closed with 1 Vicryl suture. Subcuticular layer closed with 2-0 Vicryl suture also over vancomycin powder was closed with 3-0 nylon suture sterile dressing applied the drain activated. Patient returned to PACU improved stable condition. 0 complications I attest to the content of the Intraoperative Record and any orders documented therein. Any exceptions are noted below.
[2016-09-30] MEDS ORDERED: METOCLOPRAMIDE HCL INJ 5 MG/ML 2 ML VIAL IV PRN (11:00)
[2016-09-30] MEDS ORDERED: ACETAMINOPHEN 325 MG TAB PO PRN (11:00)
[2016-09-30] MEDS ORDERED: PROMETHAZINE HCL INJ 12.5 MG in SODIUM CHLORIDE 0.9% 50ML 50 ML IV PRN (11:00)
[2016-09-30] MEDS ORDERED: HYDROmorphone HCL 0.5MG/ML 50 ML CASSETTE IV PRN (11:00)
[2016-09-30] MEDS ORDERED: MAGNESIUM HYDROXIDE SUSP 30 ML UDC PO PRN (11:00)
[2016-09-30] MEDS ORDERED: LORAZEPAM 1 MG TAB PO PRN (11:00)
[2016-09-30] MEDS ORDERED: NALOXONE HCL 0.4 MG/1 ML VIAL/CARP IV PRN (11:00)
[2016-09-30] MEDS ORDERED: LORAZEPAM INJ 1 MG in SYRINGE 0.5 ML IV PRN (11:00)
[2016-09-30] MEDS: HYDROmorphone INJ 2 MG/ML SYR/VIAL IV PRN ×7 (11:20→11:55)
[2016-09-30] MEDS ORDERED: HYDROmorphone HCL 0.5MG/ML 50 ML CASSETTE ONE (11:26)
[2016-09-30 12:14] LABS: HEMATOCRIT 42.4 % (42-52)
--- NOTE | 2016-09-30 12:32 | Anesthesiology Progress Note ---
Anesthesia Post Op Note Date & Time Sep 30, 2016 at 12:32 Vital Signs Pain Intensity: 4 Vital Signs Past 12 Hours Date Time Temp Pulse Resp B/P (MAP) Pulse Ox O2 Delivery O2 Flow Rate FiO2 09/30/16 12:20 118 16 118/90 94 Nasal Cannula 3 09/30/16 12:10 116 16 131/93 91 Nasal Cannula 4 09/30/16 12:00 36.2 113 14 127/93 92 Nasal Cannula 4 09/30/16 11:50 113 16 141/96 92 Oxymask 7 09/30/16 11:40 113 14 161/88 92 Oxymask 10 09/30/16 11:30 117 14 150/79 92 Oxymask 15 09/30/16 11:20 107 20 159/100 94 Oxymask 15 09/30/16 11:10 120 20 151/99 94 Oxymask 15 09/30/16 11:06 36.0 120 20 135/89 95 Oxymask 15 09/30/16 06:05 36.5 71 20 144/110 97 Room Air Notes Mental Status: alert / awake / arousable, participated in evaluation Pt Amnestic to Procedure: Yes Nausea / Vomiting: adequately controlled Pain: adequately controlled Airway Patency, RR, SpO2: stable & adequate BP & HR: stable & adequate Hydration State: stable & adequate Anesthetic Complications: no major complications apparent
[2016-09-30] MEDS: SODIUM CHLORIDE 0.9% 1000ML 1,000 ML IV SCH (14:19)
[2016-09-30] MEDS: KETOROLAC TROMETHAMINE 30 MG/ML VIAL IV SCH ×2 (14:20→19:54)
[2016-09-30] MEDS ORDERED: HYDROmorphone INJ 1 MG/ML SYR IV PRN (16:15)
[2016-09-30] MEDS ORDERED: NURSING VERBAL MED ORDER ONE (16:15)
[2016-09-30] MEDS ORDERED: OXYCODONE/ACETAMINOPHEN 5-325 TAB PO PRN ×2 (16:15)
[2016-09-30] MEDS ORDERED: HYDROmorphone INJ 2 MG/ML SYR/VIAL IV PRN (16:15)
[2016-09-30] MEDS: CEFAZOLIN IV 1,000 MG in DEXTROSE 5% 50ML 50 ML IV SCH ×2 (16:36→23:56)
[2016-09-30] MEDS: DEXAMETHASONE INJ 10 MG in SYRINGE 0 ML IV SCH ×2 (16:36→23:57)
[2016-10-01] VITALS (9 sets, daily range): BP systolic 106–136; BP diastolic 65–82; PULSE 72–89; TEMP 36.4–37; O2SAT 92–98
[2016-10-01] MEDS: SODIUM CHLORIDE 0.9% 1000ML 1,000 ML IV SCH (02:41)
[2016-10-01] MEDS: KETOROLAC TROMETHAMINE 30 MG/ML VIAL IV SCH ×4 (02:41→20:01)
[2016-10-01] MEDS ORDERED: DC PCA ONE (06:00)
[2016-10-01] MEDS ORDERED: HYDROmorphone INJ 1 MG/ML SYR IV PRN ×2 (06:00)
[2016-10-01] MEDS ORDERED: BISACODYL 5 MG TABEC PO PRN (06:00)
[2016-10-01] MEDS ORDERED: BISACODYL 10 MG SUPP PR PRN (06:00)
[2016-10-01] MEDS: VENLAFAXINE HCL XR 150 MG CAPXR PO SCH (06:30)
[2016-10-01] MEDS: BuPROPion SR 150 MG TABCR PO SCH (06:31)
[2016-10-01] MEDS ORDERED: OXYCODONE/ACETAMINOPHEN 5-325 TAB PO PRN ×2 (08:00)
--- NOTE | 2016-10-01 08:02 | Progress Note ---
Subjective Date of Service: Oct 01, 2016. Subjective Pt evaluation today including: conversation w/ patient Voiding: no voiding problems Alert oriented pain controlled O shortness of breath no chest pain. [place] any lower extremity difficulties Problem List Medical Problems: (1) Left sided chest pain Status: Acute (2) Low back pain Status: Acute (3) Lumbar disc herniation Status: Acute Review of Systems Constitutional: + see HPI All Other Systems: Reviewed and Negative Objective Vital Signs Date Time Temp Pulse Resp B/P (MAP) Pulse Ox O2 Delivery O2 Flow Rate FiO2 10/01/16 07:46 94 Room Air 10/01/16 07:44 36.4 80 17 108/82 (91) 94 Room Air 10/01/16 05:00 96 Room Air 10/01/16 03:05 36.6 73 14 111/75 (87) 96 Nasal Cannula 2.0 09/30/16 23:50 95 Nasal Cannula 2.0 09/30/16 23:40 95 Nasal Cannula 4.0 09/30/16 22:55 36.4 89 12 118/84 (95) 95 Nasal Cannula 4.0 09/30/16 20:19 36.4 105 12 139/79 (99) 96 Nasal Cannula 4.0 09/30/16 19:30 Nasal Cannula 4.0 09/30/16 18:00 Nasal Cannula 4.0 09/30/16 17:00 103 12 136/77 (96) 96 Oxymask 4.0 09/30/16 16:00 106 11 138/88 (105) 09/30/16 15:50 36.4 119 10 141/113 (122) 96 Oxymask 5.0 09/30/16 15:30 11 09/30/16 15:10 96 Oxymask 5.0 09/30/16 15:05 8 09/30/16 15:00 88 Oxymask 6.0 09/30/16 14:30 12 09/30/16 14:27 119 12 113/73 (86) 94 Nasal Cannula 5.0 09/30/16 14:00 118 14 09/30/16 13:44 91 Nasal Cannula 5.0 09/30/16 13:40 123 119/88 (98) 89 Nasal Cannula 5.0 09/30/16 13:00 Nasal Cannula 4.0 09/30/16 13:00 122 14 128/80 (96) 95 Nasal Cannula 4.0 09/30/16 13:00 Nasal Cannula 4.0 09/30/16 12:30 36.8 16 162/82 (108) 97 Nasal Cannula 3.0 09/30/16 12:20 118 16 118/90 94 Nasal Cannula 3 09/30/16 12:10 116 16 131/93 91 Nasal Cannula 4 09/30/16 12:00 36.2 113 14 127/93 92 Nasal Cannula 4 09/30/16 11:50 113 16 141/96 92 Oxymask 7 09/30/16 11:40 113 14 161/88 92 Oxymask 10 09/30/16 11:30 117 14 150/79 92 Oxymask 15 09/30/16 11:20 107 20 159/100 94 Oxymask 15 09/30/16 11:10 120 20 151/99 94 Oxymask 15 09/30/16 11:06 36.0 120 20 135/89 95 Oxymask 15 Physical Exam Comments: Patient is alert oriented minimal complaints of pain no chest pain shortness of breath. Our plan is to discharge him home tomorrow improved stable condition no apparent complications Laboratory Results Last 24 Hours Test 09/30/16 11:39 Hemoglobin 14.1 g/dL Hematocrit 42.4 % Assessment and Plan Plan continue with her current care plan been instituted. Joy today tentative discharge home tomorrow Continued [facility] stay due to: inadequate oral pain control, voiding difficulties , ambulation difficulties Discharge planning: home
[2016-10-01] MEDS: DEXAMETHASONE INJ 10 MG in SYRINGE 0 ML IV SCH ×3 (08:30→23:25)
[2016-10-01] MEDS: CEFAZOLIN IV 1,000 MG in DEXTROSE 5% 50ML 50 ML IV SCH (08:30)
[2016-10-01] MEDS: POLYETHYLENE (MIRALAX) 17 GM PACK PO SCH (08:31)
--- NOTE | 2016-10-01 10:33 | Anesthesiology Progress Note ---
Anesthesia Post Op Note Date & Time Oct 01, 2016 at 10:33 Vital Signs Pain Intensity: 5.0 Vital Signs Past 12 Hours Date Time Temp Pulse Resp B/P (MAP) Pulse Ox O2 Delivery O2 Flow Rate FiO2 10/01/16 07:46 94 Room Air 10/01/16 07:44 36.4 80 17 108/82 (91) 94 Room Air 10/01/16 05:00 96 Room Air 10/01/16 03:05 36.6 73 14 111/75 (87) 96 Nasal Cannula 2.0 09/30/16 23:50 95 Nasal Cannula 2.0 09/30/16 23:40 95 Nasal Cannula 4.0 09/30/16 22:55 36.4 89 12 118/84 (95) 95 Nasal Cannula 4.0 Notes Mental Status: alert / awake / arousable, participated in evaluation Pt Amnestic to Procedure: Yes Nausea / Vomiting: adequately controlled Pain: adequately controlled Airway Patency, RR, SpO2: stable & adequate BP & HR: stable & adequate Hydration State: stable & adequate Anesthetic Complications: no major complications apparent
[2016-10-01] MEDS ORDERED: NURSING VERBAL MED ORDER ONE (13:45)
[2016-10-02] MEDS: KETOROLAC TROMETHAMINE 30 MG/ML VIAL IV SCH ×2 (02:11→08:29)
[2016-10-02 06:00] VITALS: BP 115/73; PULSE 75; TEMP 36.8; O2SAT 94
[2016-10-02] MEDS: VENLAFAXINE HCL XR 150 MG CAPXR PO SCH (07:06)
[2016-10-02] MEDS: BuPROPion SR 150 MG TABCR PO SCH (07:06)
--- NOTE | 2016-10-02 07:49 | Discharge Instructions ---
Discharge Instructions Date of Service Oct 02, 2016. Admission Reason for Admission: Lumbar Disc Herniation L4-L5, L5-S1 Discharge Discharge Diagnosis / Problem: same Discharge Goals Goal(s): Improve function Activity Recommendations Activity Limitations: as noted below . Instructions / Follow-Up Instructions / Follow-Up MEDICATIONS: Please take your prescriptions as instructed at your pre-op appointment. SPECIAL CARE: The following information is intended to answer some of the common questions and concerns regarding your surgery. Each patient is an individual and receives individual counselling throughout the course of treatment, from diagnosis to surgery all the way through recovery. What follows is not an exhaustive list, but should be a useful guide to some of the common questions and concerns patients have regarding their surgeries. These are not provided to keep you from calling us; rather, they give you something accurate and concrete to reference as you recover from your procedure. If you need us, we are available to you. As always, if you are not sure about something, call us at [phone]. MEDICAL EMERGENCIES: For these conditions, call 911 or go to your local hospital-based Emergency Department - not [facility] or equivalent. * Paralysis * Severe chest pain or difficulty breathing * Swelling or redness of either leg Spine procedures can be rather complex and though complications are rare, they do occur. In such cases, effective advice regarding emergency situations cannot always be addressed over the telephone. You may be referred to the emergency department for more effective management of your problem. Activity Limitations: It is important to give your body time to heal, so please limit your activities : * In general, don't do anything that moves your spine too much. You should avoid contact sports, twisting or heavy lifting while you recover. * 5-10 pounds is all you should attempt to lift. * You should not plan on driving for approximately 3 weeks and you should avoid traveling more than 30-45 minutes at a time. Longer trips should be broken down with walking breaks spaced appropriately. * Physical therapy is not usually required. * Walking and good posture practices will help you recover and regain your function. * Avoid straining or sudden changes in position. * In general, the goal is to take it easy and recover. Don't cause any new problems. Just relax. Showers: * Do not take a bath, use a Jacuzzi or hot tub or otherwise submerge your incision. * It is usually safe to take a shower 4-5 days after your surgery. * Your incision does not require any special creams or ointments. * Simply clean it with soap and water, dry and re-dress with a clean bandage afterwards. Incision: * Keep incision clean, dry and protected until your first follow-up appointment. * Some amount of drainage and redness is normal. Any drainage should be fairly clear and not have a foul odor. * If you feel anything is wrong or you have excessive drainage, please call us. * Your stitches and lacie will be removed 10-14 days after your surgery. At the time of your first post-op visit. * Neck surgeries are typically closed with a suture underneath the skin. The steri-strips over the incision should be maintained until we see you in the office. Bracing: * You may be provided with a back or neck brace to encourage good posture and prevent injury. It will remind you not to do too much as you heal and will alert others to the fact that you have had a surgery. * Back braces may be removed for showers and when you are resting at home. They must be worn when you are walking around for any period of time or for travel. * For neck surgery, you will likely be provided with two cervical collars. The soft collar ([place] or foam rubber) is worn most commonly throughout the day and while sleeping. The plastic collar (provided at the hospital) is for showering/bathing. * Except while eating, collars should remain in place. More specifically, bracing is provided for a purpose and should be worn. * Please obtain your brace or collars prior to your operation and bring them to the hospital with you on the day of surgery. * You should also bring your collars to your post-op appointment with Dr. Lord. You should always take good care of your body and practice healthy habits, especially following surgery. You should: * Follow your doctor's treatment plan * Sit and stand properly with good posture (ears over shoulders, shoulders over hips) Don't slouch * Learn to lift correctly * Exercise regularly (low-impact aerobic exercise is especially good, but check with your doctor first) * Generally, be up and walking for 5-10 minutes at a time at least 3-4 times per day from the day you get home * Increasing walking to tolerance until you can walk for 20-30 minutes at a time * Attain and maintain a healthy body weight * Eat healthy foods ( a well-balanced, low-fat diet rich in fruits and vegetables) and get enough calcium * Avoid excessive use of alcohol When to call our office - If you notice any of the following: * Increased pain not relieve by pain medicine * Fevers greater then 100 degrees F, chills or flu symptoms * Increased redness around incision * Drainage from the incision that is not clear * Any foul smelling drainage * Swelling or fluid collection beneath the skin Miscellaneous: * In the hospital, you may be given a walker or cane for support while walking. These are temporary needs and are intended to prevent injuries due to falls. You may discontinue them when you feel strong and steady enough on your feet. * Sleep in a comfortable position. We find that many patients find a lounge chair or recliner with several pillows to be beneficial in the early post-operative period. * The support stockings should be used for 7-10 days and may be discontinued when you are back to walking more and conducting usual household activities. No problem is insignificant. We are here to help you and get you well. Contact us at [phone]. Definitions: Foraminotomy: If part of the disc or a bone spur (osteophyte) is pressing on a nerve as it leaves the vertebra (through an exit called the foramen), a foraminotomy may be done. Otomy means "to make an opening." A foraminotomy is making the opening of the foramen larger, so the nerve can exit without being compressed. Laminotomy: Similar to the foraminotomy, a laminotomy makes a larger opening, this time in your bony plate protecting your spinal canal and spinal cord (the lamina). The lamina may be pressing on your nerve, so the surgeon may make more room for the nerves using a laminotomy. Laminectomy: Sometimes, a laminotomy is not sufficient. The surgeon may need to remove all or part of the lamina. This procedure is called a laminectomy. This can often be done at many levels without any harmful effects. Current Hospital Diet Patient's current hospital diet: Regular Diet Discharge Diet Recommended Diet: Regular Diet Procedures Procedures Performed: Laminectomy and Fusion L4-5, L5-S1 Pending Studies Studies pending at discharge: no Medical Emergencies . Who to Call and When: Medical Emergencies: If at any time you feel your situation is an emergency, please call 911 immediately. . Non-Emergent Contact Non-Emergency issues call your: Surgeon . "Provider Documentation" section prepared by Juarez Lord. . VTE Core Measure Inpt VTE Proph given/why not?: Treatment not indicated
[2016-10-02 08:02] VITALS: BP 134/86; PULSE 84; TEMP 36.7; O2SAT 98
[2016-10-02 08:22] VITALS: O2SAT 98
[2016-10-02] MEDS: POLYETHYLENE (MIRALAX) 17 GM PACK PO SCH (08:27)
--- NOTE | 2016-10-02 08:37 | DISCHARGE SUMMARY ---
DATE OF DISCHARGE: 10/02/2016 SUBJECTIVE: The patient is stable after rigorous spinal fusion. Alert, oriented. No chest pain or shortness of breath. OBJECTIVE: Vital signs stable, blood count satisfactory. No neurological deficits. ASSESSMENT: Status post lumbar spine reconstruction and fusion, doing well short run. DISPOSITION: Discharge him home later today. Dressing change as well. Alert, oriented. He has a back brace at home. He has instructions at home. A prescription for [place] will be on his chart.
[2016-10-02 11:10] VITALS: BP 134/86; PULSE 84; TEMP 36.7; O2SAT 98
== END 2016-10-02 12:42 | disposition home or self-care (01) | DRG 460 ==
LOC: C.ACU 05:48 → C.3E 10:56 → ENRESERV 11:41
PROVIDERS: ADMIT Orthopaedic Surgery Orthopaedic Surgery of the Spine; ATTEND Orthopaedic Surgery Orthopaedic Surgery of the Spine
PROC: 0SG30AJ Fusion of Lumbosacral Joint with Interbody Fusion Device, Posterior Approach, Anterior Column, Open Approach (ICD-10-PCS; principal; 2016-09-30 07:30)
PROC: 0ST40ZZ Resection of Lumbosacral Disc, Open Approach (ICD-10-PCS; principal; 2016-09-30 07:30)
PROC: 0SG3071 Fusion of Lumbosacral Joint with Autologous Tissue Substitute, Posterior Approach, Posterior Column, Open Approach (ICD-10-PCS; principal; 2016-09-30 07:30)
PROC: 0SG0071 Fusion of Lumbar Vertebral Joint with Autologous Tissue Substitute, Posterior Approach, Posterior Column, Open Approach (ICD-10-PCS; principal; 2016-09-30 07:30)
DX: M51.27 Other intervertebral disc displacement, lumbosacral region (principal); F41.9 Anxiety disorder, unspecified; F32.9 Major depressive disorder, single episode, unspecified; E78.5 Hyperlipidemia, unspecified; M54.16 Radiculopathy, lumbar region; E66.9 Obesity, unspecified; Z68.32 Body mass index [BMI] 32.0-32.9, adult; Z87.891 Personal history of nicotine dependence; Z79.899 Other long term (current) drug therapy; Z79.1 Long term (current) use of non-steroidal anti-inflammatories (NSAID)

== ENCOUNTER → 2016-12-10 | Outpatient (CLI) | payer BC ==
[2016-12-10 12:54] LABS: ALT/SGPT 24 U/L (12-78); AST/SGOT 16 U/L (15-37)
== END | disposition home or self-care (01) ==
LOC: C.LAB1850 10:56
PROVIDERS: ATTEND Podiatrist Foot & Ankle Surgery
DX: R74.0 Nonspecific elevation of levels of transaminase and lactic acid dehydrogenase [LDH] (principal)

== ENCOUNTER 2020-01-07 07:25 | Inpatient (IN) ==
--- NOTE | 2019-12-21 13:49 | PAT Medication Instructions ---
Medication Instructions Date of Service December 21, 2019 Home Medications VENLAFAXINE HCL (EFFEXOR XR) 300 mg PO QAM cyclobenzaprine 10 mg PO TID PRN losartan 25 mg PO QAM naproxen 500 mg PO QAM ASK your surgeon for instructions naproxen 500 mg PO QAM DO NOT take the morning of surgery cyclobenzaprine 10 mg PO TID PRN losartan 25 mg PO QAM Take morning of surgery With a small sip of water, OTHERWISE NOTHING TO EAT OR DRINK AFTER MIDNIGHT: VENLAFAXINE HCL (EFFEXOR XR) 300 mg PO QAM Take evening before surgery cyclobenzaprine 10 mg PO TID PRN (if needed) Other Notes If you have any questions please call us at [phone] or [phone] or [phone] or [phone]
--- NOTE | 2019-12-23 15:37 | Anesthesiology Consultation ---
Date of Service December 23, 2019 Assessment & Plan (1) Encounter for pre-operative examination: - Per assessment on 12/22:Travel screen negative. No known COVID-19 positive contacts or current COVID-19 related symptoms. Surgeon arranging preop COVID testing. Awaiting results. - S/P L4-L5, L5-S1 fusion: 09/30/2016: Grade view 2, MAC#3, ETT 7.5 at [facility] Chart Review Chart Review: Acceptable Risk for Surgery and Patient seen in Pre Admission Testing Teaching & Discussion Pre-Anesthesia Teaching/Discussion Notes: Instructed NPO after midnight before surgery,except medications with 15 cc of water. Medication instructions provided according to the PAT guidelines. History Surgery Operation Date: 01/07/20 07:45 Proposed Procedures p L3-L4 Decompression and Fusion, L4-S1 Hardware Removal, Spinal Cord Monitoring - Cecil Evangelista, Height/Weight Height: 5 ft 8 in Weight: 102.8 kg Allergies Allergy/AdvReac Type Severity Reaction Status Date / Time No Known Allergies Allergy Unverified 12/23/19 16:08 Medications Home Medications Medication Instructions Recorded Confirmed Last Taken VENLAFAXINE HCL (EFFEXOR XR) 300 mg PO QAM #0 cap 05/08/16 12/15/19 Unknown cyclobenzaprine 10 mg PO TID PRN 12/15/19 12/15/19 Unknown losartan 25 mg PO QAM 12/15/19 12/15/19 Unknown naproxen 500 mg PO QAM 12/15/19 12/15/19 Unknown Past Medical History Medical History Anxiety disorder Depression Dyslipidemia no medications History of kidney stones Hypertension Lumbar disc disease with radiculopathy Lumbar stenosis Obesity Sleep apnea non-compliant with device Exercise / Class Metabolic Activity II 4-5 Yardwork/Stairs/Walk up hill Past Surgical History Surgical History History of ankle surgery right History of arthroscopy right knee History of arthroscopy of shoulder R/L History of back surgery x2; L4-L5, L5-S1 fusion: 09/30/2016: Grade view 2, MAC#3, ETT 7.5 at [facility] History of hand surgery right Hx of vasectomy S/P appendectomy S/P hernia repair Past Anesthesia History No Hx of Anesthesia Complications and No Family Hx of Anesthesia Complications History of PONV No Hx of PONV and No Hx of Motion Sickness Social History Smoking Status: Former smoker Do You Dip or Chew Tobacco: Yes (1 can/2 days- advised NPO AM DOS) Smoking End Date: Quit 30 years ago Hx Alcohol Use: No (very little) Hx Substance Use: No substance use type: does not use Review of Systems Patient denies chest pain, shortness of breath, dyspnea on exertion, fever, chills, cough, wheezing, palpitations. Physical Exam Vital Signs VITALS BP 125/81 P 79 TEMP 98.1 SP02 98%RA RESP 16 PHYSICAL Full neck and c-spine range of motion. Full TMJ range of motion. TMD 3 finger breaths Mallampati Score 2 Dentition: missing molars Lungs: clear throughout to auscultation Cardiac: regular rate and rhythm, no murmurs noted Spine: normal Carotid arteries: negative bruit Extremities: no edema Testing Laboratory Results 12/23/19 16:14 12/23/19 16:14 PT 10.6 Seconds (9.0-12.0) 12/23/19 16:14 INR 1.0 (0.9-1.1) 12/23/19 16:14 APTT 27.9 Seconds (21.0-31.0) 12/23/19 16:14 Urine Color Yellow 12/23/19 16:14 Urine Appearance Clear (Clear) 12/23/19 16:14 Urine pH 5.5 (4.5-7.5) 12/23/19 16:14 Ur Specific [place] 1.023 (1.000-1.030) 12/23/19 16:14 Urine Protein Negative (Negative) 12/23/19 16:14 Urine Glucose (UA) Negative (Negative) 12/23/19 16:14 Urine Ketones 1+ (Negative) H 12/23/19 16:14 Urine Nitrite Negative (Negative) 12/23/19 16:14 Ur Leukocyte Esterase Negative (Negative) 12/23/19 16:14 Blood Type A Negative 12/23/19 16:14 Antibody Screen NEGATIVE 12/23/19 16:14 Electrocardiogram Date: 12/23/19 NSR at 71bpm. unconfirmed report. Chest X-Ray Date: 12/23/19 FINDINGS: PA and lateral chest radiographs are compared to study dated 07/14/2018. The cardiomediastinal silhouette is unremarkable. There is bibasilar atelectasis. The lungs and pleural spaces are otherwise clear. There is no pneumothorax. The bony thorax appears intact. IMPRESSION: No active disease in the chest. Stress Test Date: 11/16/15 Type: exercise Normal stress echo at 13 METS. 100% MPHR. No EKG changes. No induced chest pain. EF 60-65%. Mild LAD/RAD. No significant valvular disease.
[2019-12-23 16:41] LABS: Basophils # (auto) 0.03 K/uL (0-0.2); Basophils % (auto) 0.4 %; Eosinophils # (auto) 0.08 K/uL (0-0.5); Hematocrit (blood only) 42.3 % (42-52); Hemoglobin 14.3 g/dL (14.0-18.0); Immature Granulocytes # (auto) 0.01 K/uL (0.00-0.02); Immature Granulocytes % (auto) 0.1 %; Lymphocytes # (auto) 2.35 K/uL (1.2-3.4); Lymphocytes % (auto) 30.2 %; Mean Corpuscular Hemoglobin 29.5 pg (25-34); Mean Corpuscular Hgb Conc 33.8 g/dL (32-36); Mean Corpuscular Volume 87.2 fL (80-100); Mean Platelet Volume 9.9 fL (7.4-10.4); Monocytes # (auto) 0.49 K/uL (0.11-0.59); Monocytes % (auto) 6.3 %; Neutrophils # (auto) 4.81 K/uL (1.4-6.5); Platelet Count 264 K/uL (130-400); RDW Standard Deviation 44.8 fL (36.4-46.3); Red Blood Count 4.85 M/uL (4.7-6.1); White Blood Count 7.77 K/uL (4.8-10.8)
[2019-12-23 16:54] LABS: Appearance Urine Clear (Clear); Bilirubin Urine Negative (Negative); Blood Urine Negative (Negative); Color Urine Yellow; Glucose Urine UA Negative (Negative); Ketones Urine 1+ (Negative); Leukocyte Esterase Urine Negative (Negative); Nitrite Urine Negative (Negative); Protein Urine Negative (Negative); Specific Gravity Urine 1.023 (1.000-1.030); Urobilinogen Urine Negative (Negative); pH Urine 5.5 (4.5-7.5)
[2019-12-23 16:55] LABS: BUN Creatinine Ratio 23.1 (10-20); Calcium 9.1 mg/dl (8.5-10.1); Creatinine Clr Calc Pharmacy 91.5 ml/min; Est GFR (African American) 88.6; Est GFR (Non-African American) 76.5; Potassium 4.5 mmol/L (3.5-5.1)
[2019-12-23 17:01] LABS: Partial Thromboplastin Time 27.9 Seconds (21.0-31.0); Prothrombin Time 10.6 Seconds (9.0-12.0)
--- NOTE | 2019-12-23 17:35 | XRay Report ---
TWO VIEW CHEST CLINICAL HISTORY: Preoperative examination. FINDINGS: PA and lateral chest radiographs are compared to study dated 07/14/2018. The cardiomediastin al silhouette is unremarkable. There is bibasilar atelectasis. The lungs and pleural spaces are other wills clear. There is no pneumothorax. The bony thorax appears intact. IMPRESSION: No active disease in the chest. ACT 112: Negative or not required by law. Electronically signed by: Primo Lott M.D. 12/23/2019 5:33 PM
--- NOTE | 2019-12-24 19:12 | Electrocardiogram Report ---
Test Reason : Blood Pressure : / mmHG Vent. Rate : 071 BPM Atrial Rate : 071 BPM P-R Int : 142 ms QRS Dur : 090 ms QT Int : 384 ms P-R-T Axes : 053 047 051 degrees QTc Int : 417 ms Normal sinus rhythm Normal ECG When compared with ECG of 03-MAY-2016 14:45, No significant change was found Confirmed by Willie Navarro ([id number]) on 12/24/2019 7:11:55 PM Referred By: Cecil Evangelista Confirmed By:Willie Navarro
[~2020-01-07 07:25] MED LIST changes: +ACETAMINOPHEN 500 MG TAB PO SCH; -BUPR-267 PO; +CeleBREX 200 MG CAP PO SCH; +GABAPENTIN 600 MG DOSE PO SCH; -IBUP-1451 PO; +LR 15ML/HR IV SCH; -VENL75CA PO; +ceFAZolin 2000MG 2,000 MG/15 ML SYR IV SCH
[2020-01-07] MEDS ORDERED: MIDAZOLAM HCL 1 MG/ML 2ML VIAL ONE (08:24)
[2020-01-07] MEDS ORDERED: LIDOCAINE HCL 2% 2 ML VIAL/AMP(20MG/ML) INFIL ONE (08:24)
[2020-01-07] MEDS ORDERED: fentaNYL citrate 100 MCG/2 ML VIAL ONE ×3 (08:24→10:55)
[2020-01-07] MEDS ORDERED: GLYCOPYRROLATE 0.2 MG/ML VIAL ONE (08:24)
[2020-01-07] MEDS ORDERED: PROPOFOL IV EMULSION 10 MG/ML 20 ML VIAL IV ONE (08:24)
[2020-01-07] MEDS ORDERED: ONDANSETRON INJ 2 MG/ML 2 ML VIAL ONE (08:24)
[2020-01-07] MEDS ORDERED: DEXAMETHASONE SOD INJ 4 MG/ML VIAL ONE (08:24)
[2020-01-07] MEDS ORDERED: NEOSTIGMINE METHYLSULFATE 1 MG/ML 10ML VIAL ONE (08:24)
[2020-01-07] MEDS ORDERED: ONDANSETRON INJ 2 MG/ML 2 ML VIAL IV PRN ×2 (09:08→14:07)
[2020-01-07] MEDS ORDERED: HYDROmorphone INJ 1 MG/ML SYRINGE IV PRN ×2 (09:08→14:07)
[2020-01-07] MEDS ORDERED: ePHEDrine sulfate 50 MG/ML AMP IV PRN (09:08)
[2020-01-07] MEDS ORDERED: ATROPINE SULFATE 0.1 MG/ML 10ML SYR IV PRN (09:08)
--- NOTE | 2020-01-07 09:55 | History & Physical Bridge Note ---
Date of Service January 07, 2020 History & Physical Bridge Note I have examined the patient, reviewed the History & Physical and in the interval since the performance of the History & Physical I have noted the following changes of clinical significance: no changes noted
--- NOTE | 2020-01-07 09:56 | History & Physical Report ---
Date of Service January 07, 2020 Assessment & Plan (1) Neurogenic claudication due to lumbar spinal stenosis: Admission and Anticipated Discharge Date Admission Date: L3-L4 decompression fusion, L4-S1 hardware removal History of Present Illness Chief Complaint: Back and leg pain Primary Care Provider: NO PCP This is a 49-year-old male who presents with chronic persistent back and leg pain after failing course of nonoperative care is here for surgical invention. Allergies Allergy/AdvReac Type Severity Reaction Status Date / Time No Known Allergies Allergy Verified 01/07/20 07:54 Home Medications Home Medications Medication Instructions Recorded Confirmed Type VENLAFAXINE HCL (EFFEXOR XR) 300 mg PO QAM #0 cap 05/08/16 01/07/20 History cyclobenzaprine 10 mg PO TID PRN 12/15/19 01/07/20 History losartan 25 mg PO QAM 12/15/19 01/07/20 History naproxen 500 mg PO QAM 12/15/19 01/07/20 History multivitamin 1 tab PO DAILY 01/07/20 01/07/20 History Past Med/Surg History Medical History Anxiety disorder Depression Dyslipidemia no medications History of kidney stones Hypertension Lumbar disc disease with radiculopathy Lumbar stenosis Obesity Sleep apnea non-compliant with device Surgical History History of ankle surgery right History of arthroscopy right knee History of arthroscopy of shoulder R/L History of back surgery x2; L4-L5, L5-S1 fusion: 09/30/2016: Grade view 2, MAC#3, ETT 7.5 at [facility] History of hand surgery right Hx of vasectomy S/P appendectomy S/P hernia repair Social History Smoking Status: Former smoker Smoking End Date: Quit 30 years ago; Second Hand Exposure: Yes (in the past); Do You Dip or Chew Tobacco: Yes (1 can/2 days- advised NPO AM DOS); Hx Alcohol Use: No (very little) Hx Substance Use: No Preferred Language: Polish Communication Ability: Effective Beliefs That Will Affect Care: None Current Living Situation: Family Feels Safe at Home: Yes Safety Concerns: Feels Safe At This Time Assistive Devices: Glasses and Hearing Aid - Left Assistive Devices Comment: will not have DOS Physical Exam Physical Exam: Patient is alert and oriented Heart regular in rhythm Lungs clear to auscultation Results & Data ([facility]) Vital Signs (Past 12 Hours) Vital Signs Temp Pulse Resp BP Pulse Ox 01/07/20 08:19 36.6 C 65 16 134/92 96
[2020-01-07] MEDS ORDERED: BACITRACIN INJ 50,000 UNIT VIAL ONE (10:06)
[2020-01-07] MEDS ORDERED: BUPIVACAINE/EPINEPHRINE 0.5% MPF 1:200,000 30 ML VIAL ONE (10:06)
[2020-01-07] MEDS ORDERED: FLOSEAL HEMOSTATIC MATRIX 10ML TOP ONE (12:12)
--- NOTE | 2020-01-07 12:21 | Operative Report ---
Post Operative Report Pre & Post Diagnosis Operation Date: 01/07/20 10:05 Pre-Op Diagnosis: Spinal Stenosis, Lumbar Region with Neurogenic Cla Post-Op Diagnosis: Spinal Stenosis, Lumbar Region with Neurogenic Cla I identified the patient and participated in the time-out.: Yes Procedure Operation Date: 01/07/20 10:05 Actual Procedures #1 removal of posterior instrumentation L4-5 L5-S1. #2 exploration of fusion L4-5 L5-S1 per #3 lumbar decompression with bilateral medial facetectomies and foraminotomies L2-3 and L3-4. #4 posterior spinal fusion L3-4. #5 placement posterior instrumentation L3-4 per #6 interbody fusion L3-4 per #7 placement peek cage 10 x 26 mm at L3-4. #8 placement locally harvested morselized autograft in the posterior gutters. #9 placement infuse collagen sponge, master graft in the posterior lateral gutters and ostial amp interbody space. Surgeon Cecil Evangelista, DO [employer] Operator Ashvin Graves Estimated Blood Loss 300 Findings See Below Patient is 5 foot 8 inches tall weighing over 101 kg with a BMI of 34. Patient's body habitus did add significant technical difficulty adding at least 50% increase to the operative time. Specimens None Indications This is a 49-year-old male who presents with above-mentioned diagnosis after failing extensive course of nonoperative care is here for the above-mentioned procedure. Description of Procedure Patient was met with identified informed consent obtained. Patient was then t aken to the operative suite underwent intubation placed in a prone position the Carlos table on top Peter frame. All bony prominences well-padded eyes inspected to ensure no external pressure placed upon them. This point the lumbar spine was prepped and draped in a sterile fashion. Sharp dissection with the assistance of Bovie cautery was then performed down to and exposing the lamina and transverse processes of L3 and instrumentation at L4 L5-S1 levels bilaterally. Then proceeded move the hardware bilaterally explore the fusion mass noting to be mature and intact. And then performed a complete laminectomy of L3 partial laminectomy of L2 including bilateral medial facetectomies and foraminotomies addressing severe spinal stenosis. Pedicle screws were then placed in L3 and L4 bilaterally with assistance of fluoroscopy and appropriate size cristal placed. By way of a transforaminal portion left complete discectomy performed endplates curetted to subcortical bleeding bone and a 10 x 26 mm peek cage filled with osteobone graft tapped in position. Rods were then locked into final position bilaterally. The transverse processes of L3 and L4 were burred to subcortical bleeding bone. Infuse collagen sponge master graft local autograft was placed in the posterior lateral gutters. 15 round HEIKE drain inserted. The incision was then closed with 1 Vicryl in the fascia 2-0 Vicryl subcutaneously and 4 Monocryl for final skin closure. Steri-Strip sterile dressings placed. Patient waken taken to PACU stable condition. Please note spinal cord monitoring was utilized at the procedure no changes noted. Joy Lock record was present at the entire surgery involved the patient positioning complex portions of the surgery and final skin closure. I attest to the content of the Intraoperative Record and any orders documented therein. Any exceptions are noted below.
[2020-01-07] MEDS: fentaNYL citrate 100 MCG/2 ML VIAL IV PRN ×2 (13:06→13:15)
--- NOTE | 2020-01-07 13:26 | Fluoroscopy Report ---
INTRAOPERATIVE RADIOGRAPHS CLINICAL HISTORY: Lumbar spinal fusion surgery. Hardware removal. Fluoroscopy time: 12 seconds. FINDINGS: 2 spot fluoroscopic views of the lumbar spine are presented. There is evidence of discectom y at L3-L4 with laminectomy and posterior fusion at this level. Interpedicular screws are in place. T he orthopedic hardware appears intact. There has also been previous discectomy at L4-L5 and L5-S1. IMPRESSION: Intraoperative images from lumbar spinal fusion surgery as above. Electronically signed by: Primo Lott M.D. 01/07/2020 1:24 PM
[2020-01-07] MEDS ORDERED: bisacodyL 10 MG SUPP PR PRN (14:07)
[2020-01-07] MEDS ORDERED: METOCLOPRAMIDE HCL INJ 5 MG/ML 2 ML VIAL IV PRN (14:07)
[2020-01-07] MEDS ORDERED: ACETAMINOPHEN 1,000 MG/100 ML VIAL IV PRN (14:07)
[2020-01-07] MEDS ORDERED: DO NOT ADMINISTER PNEUMOCOCCAL VACCINE PRN (14:07)
[2020-01-07] MEDS ORDERED: HYDROmorphone INJ 0.5 MG/0.5 ML SYR IV PRN (14:07)
[2020-01-07] MEDS ORDERED: hydrOXYzine HCl 25 MG TAB PO PRN (14:07)
[2020-01-07] MEDS ORDERED: NALOXONE HCL 0.4 MG/1 ML VIAL/CARP IV PRN (14:07)
[2020-01-07] MEDS ORDERED: PROMETHAZINE HCL 12.5 MG in SODIUM CHLORIDE 0.9% 50 ML IV PRN (14:07)
[2020-01-07] MEDS ORDERED: ALUMINUM/MAGNESIUM SUSP 30 ML UDC PO PRN (14:07)
[2020-01-07] MEDS ORDERED: FAMOTIDINE 20 MG TAB PO PRN (14:07)
[2020-01-07] MEDS ORDERED: ACETAMINOPHEN 500 MG TAB PO PRN (14:07)
[2020-01-07] MEDS ORDERED: DO NOT ADMINISTER FLU VACCINE PRN (14:07)
[2020-01-07] MEDS ORDERED: SOD PHOSPHATE/SOD BIPHOSPHATE ENEMA 132 ML BTL PR PRN (14:07)
[2020-01-07] MEDS ORDERED: LORazepam 0.5 MG TAB PO PRN (14:07)
[2020-01-07] MEDS ORDERED: LORazepam 0.5 MG/1 ML VIAL IV PRN (14:07)
[2020-01-07] MEDS ORDERED: ONDANSETRON 4 MG OD TAB PO PRN (14:07)
[2020-01-07] MEDS ORDERED: diphenhydrAMINE Capsule 25 MG CAP PO PRN (14:07)
[2020-01-07] MEDS ORDERED: traMADol HCL 50 MG TABLET PO PRN (14:07)
[2020-01-07] MEDS: LACTATED RINGER'S 1,000 ML IV SCH ×2 (14:27→19:38)
--- NOTE | 2020-01-07 14:39 | Anesthesiology Progress Note ---
Date of Service January 07, 2020 Anesthesia Post Procedure Vital Signs Vital Signs: Temp Pulse Pulse Pulse Resp BP BP 01/07/20 14:37 36.7 C 82 16 119/76 01/07/20 14:07 37 C 69 16 120/68 01/07/20 14:04 37 C 69 16 120/68 01/07/20 13:50 85 20 115/78 01/07/20 13:40 37.1 C 76 12 126/78 01/07/20 13:30 70 12 123/83 01/07/20 13:20 71 12 136/91 01/07/20 13:10 72 14 129/87 01/07/20 13:00 78 12 131/72 01/07/20 12:55 85 16 139/100 01/07/20 12:49 36.8 C 97 H 15 127/95 01/07/20 08:19 36.6 C 65 16 134/92 Pulse Ox 01/07/20 14:37 95 01/07/20 14:07 95 01/07/20 14:04 94 01/07/20 13:50 95 01/07/20 13:40 94 01/07/20 13:30 94 01/07/20 13:20 94 01/07/20 13:10 95 01/07/20 13:00 96 01/07/20 12:55 98 01/07/20 12:49 98 01/07/20 08:19 96 Pain Intensity Lower Back: Pain Intensity: 3 Transfer of Care Handoff Completed per policy Notes Mental Status: alert / awake / arousable Patient Amnestic to Procedure: Yes Nausea / Vomiting: adequately controlled Pain: adequately controlled Airway Patency, RR, SpO2: stable & adequate BP & HR: stable & adequate Hydration State: stable & adequate Anesthetic Complications: no major complications apparent
[2020-01-07] MEDS: oxyCODONE HCL IR 5 MG TAB (IMMEDIATE RELEASE) PO PRN ×2 (16:33→22:57)
[2020-01-07] MEDS: ceFAZolin 2000MG 2,000 MG/15 ML SYR IV SCH (16:33)
[2020-01-07] MEDS: KETOROLAC 30 MG/ML VIAL IV SCH (19:07)
[2020-01-07] MEDS: DOCUSATE SODIUM/SENNA 50/8.6MG TAB PO SCH (20:59)
[2020-01-08] MEDS: KETOROLAC 30 MG/ML VIAL IV SCH ×3 (00:19→12:59)
[2020-01-08] MEDS: ceFAZolin 2000MG 2,000 MG/15 ML SYR IV SCH (00:19)
[2020-01-08] MEDS: POLYETHYLENE (MIRALAX) 17 GM PACK PO SCH ×4 (05:16→20:39)
[2020-01-08 05:37] LABS: Basophils # (auto) 0.01 K/uL (0-0.2); Basophils % (auto) 0.1 %; Eosinophils # (auto) 0.01 K/uL (0-0.5); Eosinophils % (auto) 0.1 %; Hematocrit (blood only) 38.4 % (42-52); Hemoglobin 12.7 g/dL (14.0-18.0); Immature Granulocytes # (auto) 0.05 K/uL (0.00-0.02); Immature Granulocytes % (auto) 0.4 %; Lymphocytes # (auto) 1.56 K/uL (1.2-3.4); Lymphocytes % (auto) 11.3 %; Mean Corpuscular Hemoglobin 28.9 pg (25-34); Mean Corpuscular Hgb Conc 33.1 g/dL (32-36); Mean Corpuscular Volume 87.5 fL (80-100); Mean Platelet Volume 9.7 fL (7.4-10.4); Monocytes # (auto) 0.83 K/uL (0.11-0.59); Neutrophils # (auto) 11.29 K/uL (1.4-6.5); Neutrophils % (auto) 82.1 %; Platelet Count 225 K/uL (130-400); RDW Coefficient of Variation 13.5 % (11.5-14.5); RDW Standard Deviation 43.3 fL (36.4-46.3); Red Blood Count 4.39 M/uL (4.7-6.1); White Blood Count 13.75 K/uL (4.8-10.8)
[2020-01-08 06:05] LABS: BUN Creatinine Ratio 18.5 (10-20); Calcium 8.1 mg/dl (8.5-10.1); Creatinine Clr Calc Pharmacy 103.8 ml/min; Est GFR (African American) 104.3; Potassium 4.3 mmol/L (3.5-5.1)
[2020-01-08] MEDS: LOSARTAN POTASSIUM 25 MG TAB PO SCH (07:32)
[2020-01-08] MEDS: VENLAFAXINE HCL XR 150 MG CAPXR PO SCH (07:32)
[2020-01-08] MEDS: MULTIVITAMIN TAB PO SCH (07:33)
--- NOTE | 2020-01-08 09:20 | Orthopedic Progress Note ---
Date of Service January 08, 2020 Assessment & Plan (1) Neurogenic claudication due to lumbar spinal stenosis: Admission and Anticipated Discharge Date Admission Date: January 07, 2020 Patient went for physical therapy today possible discharge home Friday or . Subjective Back pain controlled leg pain improved. Physical Exam Physical Exam: Patient is in the chair at bedside is good strength testing. Peers comfortable. Results & Data ([facility]) Vital Signs (Past 12 Hours) Vital Signs Temp Pulse Pulse Resp BP Pulse Ox 01/08/20 06:45 36.4 C L 62 19 110/76 94 01/08/20 03:01 36.4 C L 64 16 105/66 93 01/07/20 23:14 36.4 C L 70 15 106/64 92 01/07/20 21:23 36.5 C 67 18 128/85 94
[2020-01-08] MEDS: DEXAMETHASONE SOD PHOSPHATE 8 MG in SYRINGE 0 ML IV SCH (10:59)
[2020-01-08] MEDS: MAGNESIUM HYDROXIDE SUSP 30 ML UDC PO PRN (20:34)
[2020-01-08] MEDS: DOCUSATE SODIUM/SENNA 50/8.6MG TAB PO SCH (20:34)
[2020-01-09] MEDS: POLYETHYLENE (MIRALAX) 17 GM PACK PO SCH ×4 (05:11→23:02)
[2020-01-09] MEDS: oxyCODONE HCL IR 5 MG TAB (IMMEDIATE RELEASE) PO PRN (05:13)
[2020-01-09] MEDS: LOSARTAN POTASSIUM 25 MG TAB PO SCH (07:23)
[2020-01-09] MEDS: VENLAFAXINE HCL XR 150 MG CAPXR PO SCH (07:23)
[2020-01-09] MEDS: MULTIVITAMIN TAB PO SCH (07:24)
[2020-01-09] MEDS: DEXAMETHASONE SOD PHOSPHATE 8 MG in SYRINGE 0 ML IV SCH (07:24)
--- NOTE | 2020-01-09 08:13 | Orthopedic Progress Note ---
Date of Service January 09, 2020 Assessment & Plan (1) Lumbar disc disease with radiculopathy: Patient is doing well postop day #2. He would like to be discharged home today as long as he is cleared by physical therapy for stairs and has a bowel movement I believe this is reasonable. Prescriptions have been sent and verbal discharge instructions have been given. He does not meet the criteria he may stay 1 extra day if necessary. Admission and Anticipated Discharge Date Admission Date: January 07, 2020 Subjective Patient was seen bedside in room 311. He is doing well today his pain is well controlled. His concerns of these not yet had a bowel movement and has not attempted stairs. He is tolerating p.o. He is no abdominal discomfort. He denies any other numbness, tingling, paresthesias. Physical Exam Physical Exam: On exam he is alert and oriented. His calves are supple nontender. Strength and sensation grossly intact his dressing is clean dry and intact. His HEIKE drain is placed at 0 on the shift and 15 on the previous. Results & Data ([facility]) Vital Signs (Past 12 Hours) Vital Signs Temp Pulse Resp BP Pulse Ox 01/09/20 06:27 36.5 C 72 18 125/83 96 01/08/20 23:05 36.4 C L 67 16 129/79 96
[2020-01-09] MEDS: MAGNESIUM HYDROXIDE SUSP 30 ML UDC PO PRN (15:59)
[2020-01-09] MEDS: DOCUSATE SODIUM/SENNA 50/8.6MG TAB PO SCH (20:57)
[2020-01-10] MEDS: POLYETHYLENE (MIRALAX) 17 GM PACK PO SCH (05:42)
[2020-01-10] MEDS: VENLAFAXINE HCL XR 150 MG CAPXR PO SCH (08:43)
[2020-01-10] MEDS: MULTIVITAMIN TAB PO SCH (08:43)
[2020-01-10] MEDS: LOSARTAN POTASSIUM 25 MG TAB PO SCH (08:43)
[2020-01-10] MEDS: DEXAMETHASONE SOD PHOSPHATE 8 MG in SYRINGE 0 ML IV SCH (08:43)
--- NOTE | 2020-01-14 10:24 | Discharge Summary ---
Date of Service January 14, 2020 Admission HPI Per Admitting Provider This is a 49-year-old male who presents with chronic persistent back and leg pain after failing course of nonoperative care is here for surgical invention. Discharge Data Consultations 01/07/20 14:07 Consult Case Management - Discharge Planning Routine Procedures Performed Operation Date: 01/07/20 10:05 Actual Procedures p L3-L4 Decompression and Fusion, Application of Bone Morphogenetic Protein and Allograft, Interbody at L3-L4, Spinal Cord Monitoring - Cecil Evangelista DO s L4-S1 Hardware Removal, - Cecil Evangelista DO Hospital Course (1) Lumbar disc disease with radiculopathy: Patient is a 49-year-old male with history physical examination radiographic images consistent with the above-mentioned diagnosis. For this reason he is brought to the operating room on 01/07/2020 undergone a removal of hardware from L4 to the sacrum with an L3-4 This was performed by Dr. Evangelista. This is under general anesthesia. Patient left the operating room with a HEIKE drain Arthur in place and transferred to PACU in stable condition. He was then discharged to the orthopedic floor. Seen by physical therapy postop day #1 for ambulation gait training. On postoperative day #2 the patient was tolerating p.o. was ambulating independently and deemed safe for home discharge. Verbal instructions were given to the patient as well as written instructions. He was follow-up in the office approximately 2 weeks from the surgery or sooner if he develops any increased pain drainage from the incision fevers or chills.
== END 2020-01-10 09:26 | disposition home or self-care (01) | DRG 455 ==
LOC: ASU 07:25 → 3E 13:11
DX: Z68.33 Body mass index [BMI] 33.0-33.9, adult; G47.33 Obstructive sleep apnea (adult) (pediatric); M51.16 Intervertebral disc disorders with radiculopathy, lumbar region; F32.9 Major depressive disorder, single episode, unspecified; F17.220 Nicotine dependence, chewing tobacco, uncomplicated; E66.9 Obesity, unspecified; I10 Essential (primary) hypertension; Z79.1 Long term (current) use of non-steroidal anti-inflammatories (NSAID); Z98.1 Arthrodesis status; F41.9 Anxiety disorder, unspecified; Z79.899 Other long term (current) drug therapy; Z91.19 Patient's noncompliance with other medical treatment and regimen; M48.062 Spinal stenosis, lumbar region with neurogenic claudication

== ENCOUNTER 2023-12-26 05:10 | Observation (INO) ==
--- NOTE | 2023-11-21 15:53 | PAT Medication Instructions ---
Medication Instructions Date of Service November 21, 2023 Home Medications Medication Instructions Recorded CPAP Supplies #1 ea 12/20/21 multivitamin 1 tab PO QAM venlafaxine 150 mg capsule,extended release 24 hr 300 mg PO QAM atorvastatin 20 mg tablet 10 mg PO QAM capsaicin 0.075 % topical cream (Arthritis Pain Relief (capsaicin)) 1 applic topical TID PRN prn losartan 50 mg tablet 50 mg PO QAM omeprazole 20 mg capsule,delayed release 20 mg PO QAM PRN prn ibuprofen 800 mg tablet 800 mg PO DAILY PRN prn lidocaine 5 % topical patch (Lidoderm) 1 patch topical DAILY PRN prn lithium carbonate 150 mg capsule 150 mg PO QPM pregabalin 50 mg capsule 50 mg PO QPM Continue as directed lidocaine 5 % topical patch (Lidoderm) 1 patch topical DAILY PRN prn (Avoid placement near surgery site prior to surgery) ASK your surgeon for instructions ibuprofen 800 mg tablet 800 mg PO DAILY PRN prn STOP taking 24 hours before surgery capsaicin 0.075 % topical cream (Arthritis Pain Relief (capsaicin)) 1 applic topical TID PRN prn DO NOT take the morning of surgery multivitamin 1 tab PO QAM losartan 50 mg tablet 50 mg PO QAM Take morning of surgery With a small sip of water, OTHERWISE NOTHING TO EAT OR DRINK AFTER MIDNIGHT: venlafaxine 150 mg capsule,extended release 24 hr 300 mg PO QAM atorvastatin 20 mg tablet 10 mg PO QAM omeprazole 20 mg capsule,delayed release 20 mg PO QAM PRN prn (if needed) Take evening before surgery lithium carbonate 150 mg capsule 150 mg PO QPM pregabalin 50 mg capsule 50 mg PO QPM Other Notes If you have any questions please call us at [phone] or [phone] or [phone] or [phone]
--- NOTE | 2023-12-01 09:11 | Anesthesiology Consultation ---
Date of Service December 01, 2023 Assessment & Plan (1) Encounter for pre-operative examination: - there is a notation from PAT RN to the OR that patient is requesting a private room due to anxiety, he did not mention/request this at PAT visit. I will also send a message to the OR ahead of surgery, determination on this is made by floor staff DOS. - Outpatient joint assessment: Patient is currently scheduled for inpatient pathway. If re-evaluated and patient/surgeon requests outpatient pathway, patient is not recommended candidate for outpatient joint program from anesthesia standpoint. Chart Review Chart Review: Acceptable Risk for Surgery and Patient seen in Pre Admission Testing Teaching & Discussion Pre-Anesthesia Teaching/Discussion Notes: Instructed NPO after midnight before surgery, except medications with 15 cc of water. Medication instructions provided according to the PAT guidelines. History Surgery Operation Date: 12/26/23 07:00 Proposed Procedures p Left Total Hip Arthroplasty Anterior - Varun Buckley, Height/Weight Height: 5 ft 9 in Weight: 111.2 kg Allergies Allergy/AdvReac Type Severity Reaction Status Date / Time lisinopril Allergy Unknown Unknown Verified 11/20/23 11:11 meloxicam Allergy Unknown Unknown Verified 11/20/23 11:11 Medications Home Medications Medication Instructions Recorded Confirmed Last Taken multivitamin 1 tab PO QAM 03/17/20 11/20/23 03/17/20 venlafaxine 150 mg 300 mg PO QAM 03/17/20 11/20/23 03/17/20 capsule,extended release 24 hr atorvastatin 20 mg tablet 10 mg PO QAM 12/11/21 11/20/23 Unknown capsaicin 0.075 % topical cream 1 applic topical TID PRN prn 12/11/21 11/20/23 Unknown (Arthritis Pain Relief (capsaicin)) losartan 50 mg tablet 50 mg PO QAM 12/11/21 11/20/23 Unknown omeprazole 20 mg capsule,delayed 20 mg PO QAM PRN prn 12/11/21 11/20/23 Unknown release CPAP Supplies #1 ea 12/20/21 12/20/21 Unknown ibuprofen 800 mg tablet 800 mg PO DAILY PRN prn 11/20/23 11/20/23 Unknown lidocaine 5 % topical patch 1 patch topical DAILY PRN prn 11/20/23 11/20/23 Unknown (Lidoderm) lithium carbonate 150 mg capsule 150 mg PO QPM 11/20/23 11/20/23 Unknown pregabalin 50 mg capsule 50 mg PO QPM 11/20/23 11/20/23 Unknown Past Medical History Medical History (Updated 12/01/23 @ 09:50 by Amber Zelaya PA-C) Anxiety disorder Cognitive dysfunction follows with Dr Grant Gomez, "memory loss" Depression Dyslipidemia GERD (gastroesophageal reflux disease) controlled, stable per pt History of kidney stones yrs ago Hypertension controlled, stable per pt Lumbar disc disease with radiculopathy Lumbar stenosis Neurogenic claudication due to lumbar spinal stenosis Obesity Osteoarthritis Prediabetes Sleep apnea non-compliant with device Patient denies h/o stroke, seizures, heart attack, heart failure, DM, blood clots/DVTs or blood transfusions. Exercise / Class Metabolic Activity II 4-5 Yardwork/Stairs/Walk up hill (denies chest discomfort or shortness of breath with one flight of stairs) Past Surgical History Surgical History History of ankle surgery right History of appendectomy History of arthroscopy right knee History of arthroscopy of shoulder R/L History of back surgery x2; L4-L5, L5-S1 fusion: 09/30/2016: Grade view 2, MAC#3, ETT 7.5 at [facility] History of hand surgery right History of hernia repair Hx of vasectomy Past Anesthesia History No Hx of Anesthesia Complications and No Family Hx of Anesthesia Complications History of PONV No Hx of PONV and No Hx of Motion Sickness Social History Smoking Status: Never smoker tobacco type: smokeless tobacco Do You Dip or Chew Tobacco: Yes (-advised) Hx Alcohol Use: Yes alcohol intake frequency: holidays/special occasions only Hx Substance Use: No substance use type: does not use Review of Systems Patient denies chest pain, shortness of breath, dyspnea on exertion, fever, chills, cough, wheezing, or palpitations. Physical Exam Vital Signs Vitals BP 130/83 P 82 TEMP 98.3 SP02 94% on RA RESP 18 Physical Patient resting comfortably in chair in no acute distress, alert and oriented, responding appropriately throughout visit Full cervical extension range of motion without pain TMD 3.5 finger breadths Mallampati Score 2 Dentition: intact, denies chipped or loose teeth, caps/crowns, implants or bridges Lungs: normal respiratory effort. Good air movement, clear throughout to auscultation, no adventitious breath sounds Cardiac: regular rate and rhythm, no murmurs noted Carotid arteries: negative bruit bilat Lab Results Anesthesia Preop Results Results Anesthesia Widget: WBC 5.78 K/ul (4.8-10.8) 12/01/23 Hgb 15.0 g/dl (14.0-18.0) 12/01/23 Hct 44.6 % (42.0-52.0) 12/01/23 Plt 244 K/uL (130-400) 12/01/23 Na 138 mmol/L (136-145) 12/01/23 K 4.1 mmol/L (3.5-5.1) 12/01/23 Cl 107 mmol/L (98-107) 12/01/23 CO2 24 mmol/L (21-32) 12/01/23 BUN 22 mg/dl (6-23) 12/01/23 Creat 0.99 mg/dl (0.6-1.4) 12/01/23 Glucose Level 119 mg/dl (70-99(Fasting)) H 12/01/23 PT 10.2 Seconds (9.0-12.0) 12/01/23 PTT 26 Seconds (21-31) 12/01/23 INR 0.9 (0.9-1.1) 12/01/23 Blood Type A Negative 12/01/23 Antibody Screen NEGATIVE 12/01/23 Testing Electrocardiogram Date: 12/01/23 NSR, rate 79 bpm Chest X-Ray Date: 12/01/23 No acute chest disease. Stress Test Date: 09/10/22 1. No scintigraphic evidence of a prior myocardial infarction or stress-induced myocardial ischemia. 2. No exercise-induced chest pain. 3. No EKG changes. 4. Normal left ventricular systolic function without wall motion abnormality. Left ventricular ejection fraction is 69%.
--- NOTE | 2023-12-25 06:38 | History & Physical Report ---
Date of Service December 25, 2023 Assessment & Plan (1) Osteoarthritis of left hip: We will proceed with a left anterior total of arthroplasty. Postoperatively he will be started on aspirin for DVT prophylaxis and kept overnight hospital for postop medical management. He plans to have the hospital set up home health for discharge. History of Present Illness Chief Complaint: Osteoarthritis of the left hip. Primary Care Provider: Ariane Ortez PA-C Bobby is a pleasant 53-year-old male who has been dealing with chronic increasing left hip and groin pain. This has been going on for the last 6 months. It is to the point where he is downgraded to a cane. He is really struggling. X-rays and clinical examination were diagnostic for advanced osteoarthritis of the left hip. After failing conservative treatment, he has elected proceed with a left anterior total of arthroplasty. . Allergies Allergy/AdvReac Type Severity Reaction Status Date / Time lisinopril Allergy Unknown Unknown Verified 11/20/23 11:11 meloxicam Allergy Unknown Unknown Verified 11/20/23 11:11 ranitidine [From Zantac] Allergy Unknown Verified 12/24/23 06:24 Home Medications Medication Instructions Recorded Confirmed Type multivitamin 1 tab PO QAM 03/17/20 11/20/23 History venlafaxine 150 mg 300 mg PO QAM 03/17/20 11/20/23 History capsule,extended release 24 hr atorvastatin 20 mg tablet 10 mg PO QAM 12/11/21 11/20/23 History capsaicin 0.075 % topical cream 1 applic topical TID PRN prn 12/11/21 11/20/23 History (Arthritis Pain Relief (capsaicin)) losartan 50 mg tablet 50 mg PO QAM 12/11/21 11/20/23 History omeprazole 20 mg capsule,delayed 20 mg PO QAM PRN prn 12/11/21 11/20/23 History release CPAP Supplies #1 ea 12/20/21 12/20/21 Rx ibuprofen 800 mg tablet 800 mg PO DAILY PRN prn 11/20/23 11/20/23 History lidocaine 5 % topical patch 1 patch topical DAILY PRN prn 11/20/23 11/20/23 History (Lidoderm) lithium carbonate 150 mg capsule 150 mg PO QPM 11/20/23 11/20/23 History pregabalin 50 mg capsule 50 mg PO QPM 11/20/23 11/20/23 History Past Med/Surg History Problem List Encounter for pre-operative examination Osteoarthritis of left hip Sleep apnea Cognitive dysfunction Amnesia Dyslipidemia (Chronic) no medications Anxiety disorder (Chronic) Depression (Chronic) Medical History Prediabetes GERD (gastroesophageal reflux disease) controlled, stable per pt Lumbar stenosis Lumbar disc disease with radiculopathy Dyslipidemia Osteoarthritis Depression Cognitive dysfunction follows with Dr Grant Gomez, "memory loss" Anxiety disorder Neurogenic claudication due to lumbar spinal stenosis Obesity Sleep apnea non-compliant with device Hypertension controlled, stable per pt History of kidney stones yrs ago Surgical History History of hernia repair History of appendectomy History of hand surgery right History of back surgery x2; L4-L5, L5-S1 fusion: 09/30/2016: Grade view 2, MAC#3, ETT 7.5 at [facility] Hx of vasectomy History of ankle surgery right History of arthroscopy of shoulder R/L History of arthroscopy right knee Social History Smoking Status: Never smoker Tobacco Type: Smokeless Tobacco (Dip or Chew) Second Hand Exposure: No; Do You Dip or Chew Tobacco: Yes (-advised); Hx Alcohol Use: Yes Hx Substance Use: No Preferred Language: Guinean Communication Ability: Effective Paper Pattern Folder Required: No Beliefs That Will Affect Care: None marital status: Current Living Situation: Spouse Feels Safe at Home: Yes Gender Identity: Male Assistive Devices: Cane and Glasses Review of Systems All systems reviewed & are unremarkable except as noted in HPI & below. Physical Exam On physical exam of the left hip, he has decreased range of motion. He is pain with internal and external rotation. All of his pain is located in his groin.. Constitutional WD/WN, vitals as above Eyes PERRL, conjunctivae normal, anicteric sclerae ENMT external ear and nose normal, oropharynx normal Neck trachea midline, no thyromegaly Respiratory normal respiratory effort Cardiovascular RRR, no murmur, no edema Gastrointestinal (Abdomen) normal bowel sounds, soft, nontender, no hepatosplenomegaly Psychiatric A+Ox3, euthymic affect Results & Data Results & Data Laboratory Results . Diagnostic Findings X-rays of the left hip show advanced osteoarthritis with joint space narrowing, osteophyte formation, and [id number] articulation. PG Care Time/CCT Total # of Minutes Spent Total Time Spent with Patient: Total time spent is greater than 50% in coordination of care (as documented) at patient's floor/unit and/or counseling patient: Coding Level of Care Code None Diagnoses Osteoarthritis of left hip M16.12
[2023-12-26] MEDS: LR 500ML BOLUS, THEN 15ML/HR IV SCH (06:02)
[2023-12-26] MEDS: GABAPENTIN 600 MG DOSE PO SCH (06:02)
[2023-12-26] MEDS: ACETAMINOPHEN 500 MG TAB PO SCH (06:02)
[2023-12-26] MEDS: LR 60ML/HR IV SCH (06:03)
[2023-12-26] MEDS: dexAMETHasone**PF** 10 MG/ML VIAL IV SCH (06:03)
[2023-12-26] MEDS ORDERED: BUPIVACAINE 0.5 % 5 MG/1 ML PF 10ML VIAL ONE (06:20)
[2023-12-26] MEDS ORDERED: MIDAZOLAM HCL 1 MG/ML 2ML VIAL ONE (06:41)
[2023-12-26] MEDS ORDERED: fentaNYL citrate PF 100 MCG/2 ML VIAL ONE (06:41)
[2023-12-26] MEDS ORDERED: SUCCINYLCHOLINE CHLORIDE 20 MG/ML 10 ML VIAL IV ONE (06:44)
[2023-12-26] MEDS ORDERED: ONDANSETRON INJ 2 MG/ML 2 ML VIAL IV PRN ×2 (06:46→08:44)
[2023-12-26] MEDS ORDERED: fentaNYL citrate PF 100 MCG/2 ML VIAL IV PRN (06:46)
[2023-12-26] MEDS ORDERED: ATROPINE SULFATE 0.1 MG/ML 10ML SYR IV PRN (06:46)
[2023-12-26] MEDS ORDERED: ePHEDrine sulfate 50 MG/ML AMP IV PRN (06:46)
[2023-12-26] MEDS: TRANEXAMIC ACID 1,000 MG **IV Pre-op IV SCH (06:47)
[2023-12-26] MEDS ORDERED: PROPOFOL IV EMULSION 10 MG/ML 20 ML VIAL IV ONE (06:47)
[2023-12-26] MEDS ORDERED: ROCURONIUM BROMIDE 10 MG/ML 5 ML VIAL IV ONE (06:48)
[2023-12-26] MEDS ORDERED: LIDOCAINE 2% 2 ML VIAL/AMP(20MG/ML) INFIL ONE (06:49)
--- NOTE | 2023-12-26 06:49 | History & Physical Bridge Note ---
Date of Service December 26, 2023 History & Physical Bridge Note I have examined the patient, reviewed the History & Physical and in the interval since the performance of the History & Physical I have noted the following changes of clinical significance: no changes noted
[2023-12-26] MEDS: ceFAZolin 2000MG 2,000 MG/15 ML SYR IV SCH ×2 (06:56→14:51)
[2023-12-26] MEDS ORDERED: PHENYLEPHRINE 100MCG/ML 5ML SYR ONE (07:24)
[2023-12-26] MEDS ORDERED: ePHEDrine sulfate 50 MG/5 ML SYR ONE (07:24)
[2023-12-26] MEDS: ORTHO JOINT ANESTHETIC ONE (07:33)
[2023-12-26] MEDS: ROPIV 0.5% 246mg, Ketorolac 30mg, EPINEPHrine 0.5mg in NSS INFIL SCH (07:33)
[2023-12-26] MEDS ORDERED: ONDANSETRON INJ 2 MG/ML 2 ML VIAL ONE (07:58)
[2023-12-26] MEDS: TRANEXAMIC ACID 1,000 MG **IV Intra-op IV SCH (08:12)
--- NOTE | 2023-12-26 08:24 | Operative Report ---
PG Post Operative Report Pre & Post Diagnosis Operation Date: 12/26/23 07:00 Pre-Op Diagnosis: Left Hip Osteoarthritis Post-Op Diagnosis: Left Hip Osteoarthritis I identified the patient and participated in the time-out.: Yes Procedure Operation Date: 12/26/23 07:00 Actual Procedures p Left Anterior Total Hip Arthroplasty, Uncemented(Left) - Varun Buckley DO Surgeon Varun Buckley DO [employer] Erendira Vazquez PA-C Estimated Blood Loss 200 Findings Consistent with Post-Op Diagnosis Specimens Left femoral head Description of Procedure Implants used I used a ZimmerBiomet total hip arthroplasty system with a size 6 high offset Avenir Complete stem, a 54 mm G7 cup with a 25mm screw, an E1 polyethylene liner, a 40 mm ceramic head with a 0 neck. Preston arrived at the hospital for the above procedure. He was seen in the preoperative holding area and the operative extremity was identified and signed. He was given a spinal anesthetic, a preoperative antibiotic, and TXA. He was then taken back to the operating room and laid on the table in the supine position. He was given basic sedation. The operative leg was secured to a Puristst leg positioner. The hip was then prepped and draped in sterile fashion. A timeout was done and the patient and the operative extremity was properly identified. An anterior approach was used. Dissection was taken down through the fascia and the tensor muscle belly was retracted laterally and the rectus was retracted medially. The circumflex vessels were identified and ligated. The capsule was then incised and tagged for later repair. The femoral neck was then cut and the femoral head was removed. The acetabulum was exposed. Time was spent doing a complete circumferential labral release. Sequential reaming of the acetabulum up to a size 53 reamer was done. Final reamings were done under fluoroscopy to ensure appropriate version. A Biomet 54 mm G7 cup was then impacted into place. A single 25 mm screw was placed. The E1 polyethylene liner was then snapped into place. Surrounding soft tissues were then injected with 100 cc of an orthopedic pain control cocktail. The proximal femur was then exposed. Sequential broaching up to a size 6 broach was done. Off that broach a size 40 head with a 0 neck was trialed. The hip was reduced and fluoroscopic images showed anatomic alignment of the implants in acceptable length. The broach was removed. The final size 6 high offset Avenir Complete stem was then impacted into place. A ceramic 40 mm head with a 0 neck was then impacted onto the stem and the hip was reduced. Final fluoroscopic images showed anatomic alignment of the hip. The capsule was then closed with #1 Vicryl suture. A dilute betadyne lavage was then done for 3 minutes. The joint was then irrigated with normal saline solution. The fascia was closed with #1 PDS suture. Skin was closed with 2-0 Vicryl, lacie, and a Silverlon dressing. He was then transferred to a hospital bed and taken to the post anesthesia care unit in stable condition. He tolerated the procedure well. Erendira Vazquez PA-C, was present for the entire procedure. He was critical for patient positioning, prepping, draping, retraction exposure, wound closure and application of sterile dressing. I attest to the content of the Intraoperative Record and any orders documented therein. Any exceptions are noted below.
[2023-12-26] MEDS ORDERED: NALOXONE HCL 0.4 MG/1 ML VIAL/CARP IV PRN (08:44)
[2023-12-26] MEDS ORDERED: METOCLOPRAMIDE HCL INJ 5 MG/ML 2 ML VIAL IV PRN (08:44)
[2023-12-26] MEDS ORDERED: bisacodyL 10 MG SUPP PR PRN (08:44)
[2023-12-26] MEDS ORDERED: diphenhydrAMINE Capsule 25 MG CAP PO PRN (08:44)
[2023-12-26] MEDS ORDERED: MAGNESIUM HYDROXIDE SUSP 30 ML UDC PO PRN (08:44)
--- NOTE | 2023-12-26 08:47 | Fluoroscopy Report ---
FL hip LT 1V CLINICAL HISTORY: LEFT ANTERIOR HIP COMPARISON STUDY: Left hip radiographs September 30, 2023. FLUOROSCOPY TIME: 22 seconds. EXPOSURE DOSE: 3.4226 mGy FLUOROSCOPIC IMAGES: 1 FINDINGS: Fluoroscopy was provided during anterior total left hip arthroplasty. Alignment is anatomic . No fractures are identified by fluoroscopy. There is an acetabular screw. No unexpected radiopaque foreign bodies are present. IMPRESSION: Fluoroscopy provided during total left hip arthroplasty. ACT 112: Negative or not required by law. Electronically signed by: López Tapia M.D. 12/26/2023 8:33 AM
[2023-12-26] MEDS ORDERED: NON-FORMULARY MEDICATION (Multivitamin Tablet) PO SCH (09:00)
--- NOTE | 2023-12-26 09:29 | XRay Report ---
XR hip 1V LT w pelvis CLINICAL HISTORY: Postoperative evaluation. COMPARISON: Left hip radiographs September 30, 2023. FINDINGS: Alignment of the total left hip arthroplasty is anatomic. There is no periprosthetic fract ure or unexpected radiopaque foreign body. There are skin lacie. IMPRESSION: Expected findings following total left hip arthroplasty. ACT 112: Negative or not required by law. Electronically signed by: López Tapia M.D. 12/26/2023 9:27 AM
[2023-12-26] MEDS: Nursing to Pharmacy Communication SCH (09:46)
[2023-12-26] MEDS: ALLERGY Noted to ORDERED Medication SCH (09:47)
[2023-12-26] MEDS ORDERED: CAPSAICIN CR 0.075% 60 GM TUBE EXT PRN (10:15)
[2023-12-26] MEDS ORDERED: IBUPROFEN 800 MG TAB PO PRN (10:21)
[2023-12-26] MEDS: VENLAFAXINE HCL XR 150 MG CAPXR PO SCH (10:27)
[2023-12-26] MEDS: ATORVASTATIN 10 MG TAB PO SCH (12:13)
[2023-12-26] MEDS: MULTIVITAMIN TAB PO SCH (12:13)
[2023-12-26] MEDS: DOCUSATE SODIUM 100 MG CAP PO SCH (12:13)
[2023-12-26] MEDS: LOSARTAN POTASSIUM 50 MG TAB PO SCH (12:14)
--- NOTE | 2023-12-26 14:02 | Anesthesiology Progress Note ---
Date of Service December 26, 2023 Anesthesia Post Procedure Vital Signs Vital Signs: Temp Pulse Pulse Resp BP Pulse Ox O2 Del Method 12/26/23 13:15 36.5 C 88 18 119/79 96 Room Air 12/26/23 12:40 Room Air 12/26/23 12:00 92 H 18 125/77 95 Room Air 12/26/23 11:02 76 18 112/69 96 Room Air 12/26/23 10:31 75 18 135/79 98 Nasal Cannula 12/26/23 10:00 36.3 C L 80 16 122/74 93 Nasal Cannula 12/26/23 09:45 36.4 C L 64 16 109/76 94 Nasal Cannula 12/26/23 09:35 64 15 109/86 93 Nasal Cannula 12/26/23 09:25 78 13 105/69 93 Nasal Cannula 12/26/23 09:15 68 14 118/76 93 Nasal Cannula 12/26/23 09:05 68 15 110/71 94 Nasal Cannula 12/26/23 08:55 74 17 120/68 92 Nasal Cannula 12/26/23 08:46 36.2 C L 75 17 100/65 94 Nasal Cannula 12/26/23 05:45 36.6 C 68 16 140/94 95 Room Air O2 Flow Rate 12/26/23 13:15 12/26/23 12:40 12/26/23 12:00 12/26/23 11:02 12/26/23 10:31 2 12/26/23 10:00 2 12/26/23 09:45 2 12/26/23 09:35 2 12/26/23 09:25 2 12/26/23 09:15 2 12/26/23 09:05 4 12/26/23 08:55 2 12/26/23 08:46 2 12/26/23 05:45 Transfer of Care Handoff Completed per policy Notes Mental Status: alert / awake / arousable Patient Amnestic to Procedure: Yes Nausea / Vomiting: adequately controlled Pain: adequately controlled Airway Patency, RR, SpO2: stable & adequate BP & HR: stable & adequate Hydration State: stable & adequate Neuraxial Anesthesia: was administered and sensory block is resolving Anesthetic Complications: no major complications apparent and Pt Satisfied with anesthetic care
[2023-12-26] MEDS: oxyCODONE HCL IR 5 MG TAB (IMMEDIATE RELEASE) PO PRN (14:51)
[2023-12-26] MEDS: HYDROmorphone INJ 1 MG/ML SYRINGE IV PRN (16:19)
[2023-12-26] MEDS: PREGABALIN 50 MG CAP PO SCH (20:37)
[2023-12-26] MEDS: SENNA 8.6 MG TAB PO SCH (20:38)
[2023-12-26] MEDS: LITHIUM CARBONATE 300 MG TAB PO SCH (20:38)
[2023-12-26] MEDS: HYDROmorphone INJ 0.5 MG/0.5 ML SYR IV PRN (22:23)
--- NOTE | 2023-12-27 08:17 | Orthopedic Progress Note ---
Date of Service December 27, 2023 Assessment & Plan (1) Status post left hip replacement: Overall he is doing fairly well. He is is having pain in the left hip but that is to be expected. He will be seen by physical therapy today for ambulation and range of motion exercises. He can stay in the hospital today for therapy and pain control. He plans to be discharged to home tomorrow. Alyssa Johnston was seen and examined at bedside this morning. Overall he is doing okay. He is having a lot of soreness in the hip. He is very hesitant about going home today. He has no other complaints.. Review of Systems All systems reviewed & are unremarkable except as noted in HPI & below. Physical Exam Physical exam of the left hip, the dressing is clean and dry. His leg is out full extension. He has active dorsiflexion plantarflexion of his left ankle.. Results & Data Results & Data Laboratory Results . Diagnostic Findings Postoperative x-rays of the left hip show the prosthesis to be in anatomic al ignment without any evidence of fracture complication, or loosening.. PG Care Time/CCT Total # of Minutes Spent Total Time Spent with Patient: Total time spent is greater than 50% in coordination of care (as documented) at patient's floor/unit and/or counseling patient: Coding Level of Care Code 67793 Post Operative Follow-Up Diagnoses Status post left hip replacement Z96.642
[2023-12-27] MEDS: ASPIRIN 325 MG ECTAB PO SCH (09:03)
[2023-12-27] MEDS: dexAMETHasone 4 MG TAB PO SCH (09:03)
--- NOTE | 2023-12-28 07:25 | Orthopedic Progress Note ---
Date of Service December 28, 2023 Assessment & Plan (1) Status post left hip replacement: Overall he seems to be doing fairly well with the hip. He is concerned about going home with the number of stairs he has to get up and do his house. He wants to see how he does today with physical therapy before deciding if he can return home. He is on aspirin for DVT prophylaxis. He can be discharged to home today if he passes physical therapy. Otherwise, we will keep him till tomorrow. Alyssa Johnston was seen and examined at bedside this morning. Overall he seems to be doing better. He has been up and ambulating in the hallways. He is still struggling some with steps. He is concerned about going home. He has no other complaints.. Review of Systems All systems reviewed & are unremarkable except as noted in HPI & below. Physical Exam On physical exam of the left hip, the dressing is clean and dry. He is up and ambulating when I saw him in the room today.. Results & Data Results & Data Laboratory Results . Diagnostic Findings . PG Care Time/CCT Total # of Minutes Spent Total Time Spent with Patient: Total time spent is greater than 50% in coordination of care (as documented) at patient's floor/unit and/or counseling patient: Coding Level of Care Code 86949 Post Operative Follow-Up Diagnoses Status post left hip replacement Z96.642
[2023-12-29 07:26] VITALS: BP 127/77; PULSE 87; RESP 16; TEMP 97.5; O2SAT 97
[2023-12-29] MEDS: PANTOprazole 40 MG TAB PO PRN (08:55)
== END 2023-12-29 13:47 | disposition home or self-care (01) ==
LOC: ASU 05:10 → 3E 05:10

== ENCOUNTER 2024-06-17 01:14 | Inpatient (IN) ==
[2024-06-17] MEDS: ASPIRIN CHEW 324 MG PO STA (01:38)
[2024-06-17] MEDS: NITROGLYCERIN SL 0.4 MG/TAB TAB SL PRN (01:39)
--- NOTE | 2024-06-17 01:46 | Emergency Department Note ---
History of Present Illness General Chief complaint: Chest Pain Stated complaint: CHEST PAIN DOWN LEFT ARM AND SHOULDER BLADE Time Seen by Provider: 06/17/24 01:18 History of Present Illness Maximum Pain Intensity: 8 This 53-year-old male with a history of pre-diabetes presents ER complaining of chest pain that radiates to his shoulder and to his neck who felt nauseous and diaphoretic with this 45 minutes prior to coming here. He had a similar episode earlier tonight that resolved after taking an aspirin. Patient denies prior heart disease, blood clot or stroke. Patient smoked greater than 30 years ago. No recent heart testing. Patient denies injury to the area, abdominal pain, leg pain or swelling. Home Medications Medication Instructions Recorded Confirmed Type multivitamin 1 tab PO QAM 03/17/20 06/17/24 History venlafaxine 150 mg 300 mg PO QAM 03/17/20 06/17/24 History capsule,extended release 24 hr atorvastatin 20 mg tablet 10 mg PO QAM 12/11/21 06/17/24 History losartan 50 mg tablet 50 mg PO QAM 12/11/21 06/17/24 History omeprazole 20 mg capsule,delayed 20 mg PO QAM PRN prn 12/11/21 06/17/24 History release ibuprofen 800 mg tablet 800 mg PO DAILY PRN prn 11/20/23 06/17/24 History lithium carbonate 150 mg capsule 150 mg PO QPM 11/20/23 06/17/24 History pregabalin 50 mg capsule 50 mg PO QPM PRN Pain 11/20/23 06/17/24 History donepezil 5 mg tablet 5 mg PO QAM 06/17/24 06/17/24 History tirzepatide (weight loss) 7.5 7.5 mg subcut WK 06/17/24 06/17/24 History mg/0.5 mL subcutaneous pen injector (Zepbound) Allergies Allergy/AdvReac Type Severity Reaction Status Date / Time lisinopril Allergy Unknown Wheezing Verified 12/26/23 05:39 meloxicam Allergy Unknown Diarrhea Verified 12/26/23 05:39 ranitidine [From Zantac] Allergy Wheezing Verified 12/26/23 05:39 Past Med/Surg History Problem List (Updated 06/17/24 @ 02:43 by Pat Duffy PA-C) Chest pain (Acute) Status post left hip replacement (~12/2023) Osteoarthritis of left hip Sleep apnea Cognitive dysfunction Amnesia Dyslipidemia (Chronic) no medications Anxiety disorder (Chronic) Depression (Chronic) Medical History Prediabetes GERD (gastroesophageal reflux disease) Lumbar stenosis Lumbar disc disease with radiculopathy Dyslipidemia Osteoarthritis Depression Cognitive dysfunction Anxiety disorder Neurogenic claudication due to lumbar spinal stenosis Obesity Sleep apnea Hypertension History of kidney stones Surgical History History of hernia repair History of appendectomy History of hand surgery History of back surgery Hx of vasectomy History of ankle surgery History of arthroscopy of shoulder History of arthroscopy Social History Smoking Status: Never smoker Tobacco Type: Cigarettes Second Hand Exposure: No; Do You Dip or Chew Tobacco: Yes (-advised); Hx Alcohol Use: Yes Hx Substance Use: No Preferred Language: Tamazight Communication Ability: Effective Infrastructure Analyst Required: No Beliefs That Will Affect Care: None marital status: Current Living Situation: Spouse Feels Safe at Home: Yes Gender Identity: Male Assistive Devices: Walker Review of Systems A total of 10 systems reviewed and were otherwise negative Physical Exam Vital Signs Vital Signs - 24 hr 06/17/24 01:20 06/17/24 01:40 06/17/24 01:42 Temperature 36.5 C Temperature Source Temporal Artery Scan Pulse Rate 71 57 L Pulse Rate [Apical] Pulse Rhythm [Apical] Respiratory Rate 18 Respiratory Effort / Characteristics Non-Labored Spontaneous Respiratory Depth Normal Respiratory Pattern Blood Pressure 117/79 Blood Pressure [Left Arm] Blood Pressure Mean 91 Blood Pressure Mean [Left Arm] Pulse Oximetry 96 96 Oxygen Delivery Method Room Air Room Air Sepsis Recent Fever Within 48 Hours No Sepsis New/Unexplained Change in Mental Status No Sepsis Action Taken by Nursing No Action Required 06/17/24 01:45 06/17/24 01:50 Temperature Temperature Source Pulse Rate Pulse Rate [Apical] 60 65 Pulse Rhythm [Apical] Regular Regular Respiratory Rate 16 17 Respiratory Effort / Characteristics Non-Labored Spontaneous Non-Labored Spontaneous Respiratory Depth Normal Normal Respiratory Pattern Regular Regular Blood Pressure Blood Pressure [Left Arm] 97/72 L 91/69 L Blood Pressure Mean Blood Pressure Mean [Left Arm] 80 76 Pulse Oximetry 93 95 Oxygen Delivery Method Room Air Room Air Sepsis Recent Fever Within 48 Hours Sepsis New/Unexplained Change in Mental Status Sepsis Action Taken by Nursing VITALS: Vitals are noted on the nurse's note and reviewed by myself. Vital signs stable. GENERAL: Pleasant patient who appears uncomfortable, in no acute distress, nondiaphoretic, well-developed well-nourished. SKIN: Capillary reflex less than 2 seconds. HEENT: Normocephalic. PERRLA. EOMI. Nares patent. Mucous membranes moist. Neck is supple without nuchal rigidity. HEART: Regular rate and rhythm LUNGS: Clear to auscultation bilaterally without wheezes, rales or rhonchi. No retractions or accessory muscle use. ABDOMEN: Positive bowel sounds x 4. Normal tympanic percussion. Soft, nontender, without masses or organomegaly. Vera sign negative. No guarding or rebound tenderness. no CVA tenderness MUSCULOSKELETAL: No gross musculoskeletal defects. NEURO: Patient was alert and oriented to person place and time. No focal neurological deficits. Course Administered Medications Nitroglycerin (Nitroglycerin Sl 0.4 Mg/Tab Tab) 0.4 mg SL Q5M PRN PRN Reason: Chest Pain Stop: 07/17/24 01:31 Last Admin: 06/17/24 01:39 Dose: 0.4 mg Documented By: ISAAC Discontinued Medications Aspirin (Aspirin Chew 324 Mg) 324 mg PO NOW STA Stop: 06/17/24 01:33 Last Admin: 06/17/24 01:38 Dose: 324 mg Documented By: ISAAC Sodium Chloride (Nss) 500 mls @ 999 mls/hr IV .Q31M ONE Stop: 06/17/24 02:41 Last Infusion: 06/17/24 02:10 Dose: Infused Documented By: Admin: 06/17/24 01:50 Dose: 999 mls/hr Documented By: ADDISON Medical Decision Making Medical Records Attestation: I reviewed the patient's medical records. Home Medications Current Medication List: was personally reviewed by me Laboratory Data Attestation: I reviewed the patient's lab results. 06/17/24 01:35 06/17/24 01:35 Lab Results 06/17/24 Range/Units 01:35 WBC 7.49 (4.8-10.8) K/ul RBC 5.10 (4.70-6.10) M/uL Hgb 14.3 (14.0-18.0) g/dl Hct 42.9 (42.0-52.0) % MCV 84.1 (80.0-100.0) fL MCH 28.0 (25.0-34.0) pg MCHC 33.3 (32.0-36.0) g/dL RDW Std Deviation 41.7 (36.4-46.3) fL RDW Coeff of Ricardo 13.6 (11.5-14.5) % Plt Count 255 (130-400) K/uL MPV 9.6 (9.4-12.4) fL Immature Gran % (Auto) 0.3 % Neut % (Auto) 50.2 % Lymph % (Auto) 38.5 % Bradley % (Auto) 8.8 % Eos % (Auto) 1.7 % Baso % (Auto) 0.5 % Neut # (Auto) 3.76 (1.40-6.50) K/uL Lymph # (Auto) 2.88 (1.20-3.40) K/uL Bradley # (Auto) 0.66 H (0.11-0.59) K/uL Eos # (Auto) 0.13 (0.00-0.50) K/uL Baso # (Auto) 0.04 (0.00-0.20) K/uL Immature Gran # (Auto) 0.02 (0.01-0.20) K/uL D-Dimer 520 H* (0-500) ug/L FEU Sodium 140 (136-145) mmol/L Potassium 3.8 (3.5-5.1) mmol/L Chloride 107 (98-107) mmol/L Carbon Dioxide 29 (21-32) mmol/L Anion Gap 4 (3-11) BUN 21 (6-23) mg/dl Creatinine 1.06 (0.6-1.4) mg/dl Est Cr Clr Drug Dosing 92.2 ml/min eGFR 82.88 BUN/Creatinine Ratio 19.8 (10-20) Glucose 94 (70-99(Fasting)) mg/dl Calcium 9.4 (8.6-10.3) mg/dl Total Bilirubin 0.7 (0.2-1.0) mg/dl AST 22 (13-39) U/L ALT 23 (7-52) U/L Alkaline Phosphatase 64 (34-104) U/L Troponin I High Sens < 2.3 (0-20) pg/ml Total Protein 7.2 (6.0-8.3) gm/dl Albumin 4.3 (3.4-5.0) gm/dl Globulin 2.9 (2.5-4.0) gm/dl Albumin/Globulin Ratio 1.5 (0.9-2) Lipase 99 H (11-82) U/L Imaging Data Attestation: I personally reviewed and interpreted this imaging study as follows: MDM Narrative Prior records/ancillary studies reviewed. Triage Nursing notes reviewed. Additional history obtained from nursing. The patient's history was concerning for chest pain. Differential diagnosis: Etiologies such as cardiac ischemia, aortic dissection, pulmonary embolism, pneumonia, pneumothorax, musculoskeletal, infections, pericarditis, myocarditis, esophageal rupture, gastrointestinal, as well as others were entertained. Physical examination: As above. ER treatment provided: An order was placed for continuous cardiac monitoring. The monitor shows a rate of 60-100 with a sinus rhythm per my interpretation. Aspirin and nitroglycerin were ordered On reassessment the patient felt better. Diagnostic interpretation by me: #1 the electrocardiogram was ordered for chest pain EKG: Normal sinus, normal intervals, no acute ST-T wave changes, rate of 55. Impression sinus bradycardia independently interpreted by myself I think arrhythmia is unlikely. EKG shows normal sinus rhythm with no interval abnormalities such as QT prolongation or WPW. There are no findings to suggest Brugada syndrome. Cardiac monitoring in the emergency department reveals no tachycardic or bradycardic dysrhythmia. Hypertrophic cardiomyopathy was considered but there are no clear historical elements pointing toward this. EKG is not suggestive. The QRS voltage is not extremely large and there are no suggestive Q waves. #2 EKG was ordered for chest pain EKG: Normal sinus, normal intervals, no acute ST-T wave changes, rate of 54. Impression sinus bradycardia independently interpreted by myself The labs Independently Interpreted by myself revealed negative troponin. Minimally elevated lipase. D-dimer is 520 and with the YEARS study patient is negative for PE Imaging studies: Chest x-ray with no acute consolidation, pneumothorax or free air per my independent interpretation HEART SCORE: Hx: high/mod/low suspicion: 2 ECG: ST depression/nonspecific changes/normal: 0 Age: Greater than 65/45-64/less than 45: 1 Risk factors: (Hypertension, hyperlipidemia, diabetes, coronary disease, tobacco use, cocaine use): 1 Troponin: Greater than 2 times normal limits/1-2 times normal limits/normal: 0 Total: 4 Consultation: A consultation was placed with the hospitalist. The case was discussed and diagnostics were reviewed. The patient was evaluated in the ER for further treatment. Exam and history seen consistent with chest pain with concerns for cardiac in etiology. Patient had symptoms 45 minutes prior to arrival. Symptoms resolved with nitroglycerin but did bottom out his blood pressure. 2 EKGs were nonischemic. Moderate heart score. Medicine was consulted case discussed. He will be evaluated for admission. Patient is agreeable. By the evaluation outlined above emergent etiologies such as aortic dissection, pulmonary embolism, pneumonia, pneumothorax, infections, pericarditis, myocarditis, gastrointestinal, as well as others were deemed relatively unlikely. The pt informed about the findings as listed above. All questions were answered and pleased with the treatment. The chart was completed utilizing [employer] Speech voice recognition software. Grammatical errors, random word insertions, pronoun errors, and incomplete sentences are an occassional consequence of this system due to software limitations, ambient noise, and hardware issues. Any formal questions or concerns about the content, text, or information contained within the body of this dictation should be directly addressed to the physician virtual office assistant for clarification. Impression & Plan Chest pain Discharge Plan Visit Data Chief Complaint: Chest Pain Stated Complaint: CHEST PAIN DOWN LEFT ARM AND SHOULDER BLADE ED Provider: Pennie Lee ED Midlevel Provider: Pat Duffy Discharge Problem: Chest pain Patient Disposition: Being Evaluated by Hospitalist Condition: Good Forms Stand Alone Forms: My [facility] [employer] Prescriptions Prescriptions: No Action atorvastatin 20 mg tablet 10 mg PO QAM capsaicin [Arthritis Pain Relief(capsaic)] 0.075 % cream 1 applic topical TID PRN (Reason: prn) Rx Instructions: do not wash area for at least 30 min after application losartan 50 mg tablet 50 mg PO QAM omeprazole 20 mg capsule,delayed release(DR/EC) 20 mg PO QAM PRN (Reason: prn) (DME) CPAP Supplies Misc .Route Qty: 1 0RF Rx Instructions: Patient already has machine, needs new mask, filters, and supplies. Already established with [facility]. multivitamin Tablet 1 tab PO QAM venlafaxine 150 mg Capsule,Extended Release 24hr 300 mg PO QAM ibuprofen 800 mg Tablet 800 mg PO DAILY PRN (Reason: prn) lithium carbonate 150 mg Capsule 150 mg PO QPM lidocaine [Lidoderm] 5 % Adhesive Patch,Medicated 1 patch TOPICAL DAILY PRN (Reason: prn) Rx Instructions: leave on most painful area for up to 12 hrs pregabalin 50 mg Capsule 50 mg PO QPM oxycodone 5 mg Tablet 5 mg PO Q4H PRN (Reason: pain) Qty: 30 0RF aspirin [Adult Aspirin Regimen] 81 mg tablet,delayed release (DR/EC) 81 mg PO BID Qty: 84 0RF Referrals Referrals: Lolita Iniguez PA-C [Primary Care Provider] - Discharge Problem: Chest pain Qualifiers: Chest pain type: unspecified Qualified Code(s): R07.9 - Chest pain, unspecified
[2024-06-17] MEDS: SODIUM CHLORIDE 0.9% 500 ML IV ONE (01:50)
[2024-06-17 02:02] LABS: Basophils # (auto) 0.04 K/uL (0.00-0.20); Basophils % (auto) 0.5 %; Eosinophils # (auto) 0.13 K/uL (0.00-0.50); Eosinophils % (auto) 1.7 %; Hematocrit (blood only) 42.9 % (42.0-52.0); Hemoglobin 14.3 g/dl (14.0-18.0); Immature Granulocytes # (auto) 0.02 K/uL (0.01-0.20); Immature Granulocytes % (auto) 0.3 %; Lymphocytes # (auto) 2.88 K/uL (1.20-3.40); Lymphocytes % (auto) 38.5 %; Mean Corpuscular Hgb Conc 33.3 g/dL (32.0-36.0); Mean Corpuscular Volume 84.1 fL (80.0-100.0); Mean Platelet Volume 9.6 fL (9.4-12.4); Monocytes # (auto) 0.66 K/uL (0.11-0.59); Monocytes % (auto) 8.8 %; Neutrophils # (auto) 3.76 K/uL (1.40-6.50); Neutrophils % (auto) 50.2 %; Platelet Count 255 K/uL (130-400); RDW Coefficient of Variation 13.6 % (11.5-14.5); RDW Standard Deviation 41.7 fL (36.4-46.3); White Blood Count 7.49 K/ul (4.8-10.8)
[2024-06-17 02:17] LABS: Alanine Aminotransferase 23 U/L (7-52); Albumin Globulin Ratio 1.5 (0.9-2); Albumin Level 4.3 gm/dl (3.4-5.0); Alkaline Phosphatase 64 U/L (34-104); Anion Gap 4 (3-11); Aspartate Aminotransferase 22 U/L (13-39); BUN Creatinine Ratio 19.8 (10-20); Bilirubin,Total 0.7 mg/dl (0.2-1.0); Blood Urea Nitrogen 21 mg/dl (6-23); Calcium 9.4 mg/dl (8.6-10.3); Carbon Dioxide 29 mmol/L (21-32); Chloride 107 mmol/L (98-107); Creatinine Clr Calc Pharmacy 92.2 ml/min; Globulin 2.9 gm/dl (2.5-4.0); Glucose 94 mg/dl (70-99(Fasting)); Lipase 99 U/L (11-82); Potassium 3.8 mmol/L (3.5-5.1); Sodium 140 mmol/L (136-145); Total Protein 7.2 gm/dl (6.0-8.3)
[2024-06-17 02:23] LABS: Troponin I High Sensitivity < 2.3 pg/ml (0-20)
[2024-06-17 02:40] LABS: D Dimer 520 ug/L FEU (0-500)
--- NOTE | 2024-06-17 02:50 | XRay Report ---
EXAM: XR chest 1V portable CLINICAL HISTORY: Chest pain, nonspecific. TECHNIQUE: An X-ray image of the chest is obtained in AP projection. COMPARISON: The Last available study, dated 12/01/2023, was reviewed. FINDINGS: Pulmonary Parenchyma: Bilateral increased bronchovascular markings. No evidence of consolidation, collapse, or focal opacities. No pulmonary nodules are identified. No evidence of pleural effusion or pleural thickening. Heart and Mediastinum: Heart size and shape are normal. No mediastinal widening or masses. No hilar or mediastinal lymphadenopathy. Bony Thorax: Bony thorax appears intact without fractures or deformities. Soft Tissues: Soft tissues overlying the chest wall are unremarkable. IMPRESSION: 1. Bilateral increased bronchovascular markings. 2. No acute cardiopulmonary abnormalities are identified. 3. No significant interval changes. Electronically signed by Juan Pugh 06-17-2024 02:49 AM
--- NOTE | 2024-06-17 03:40 | History & Physical Report ---
Date of Service June 17, 2024 Assessment & Plan (1) Chest pain: (2) Anxiety disorder: (3) Hypertension: Plan 53 y/o male with PMH of HTN, Hyperlipidemia, neuropathy, Anxiety and pre diabetes that presented to the hospital due to chest pain. He complained about chest pain that radiated to his left arm and shoulder blade that woke him. He had similar pain early in the afternoon of 06/16 that resolved after taking aspirin. Patient will be admitted for further monitor Chest pain - Substernal chest pain x2. Did some paint work in the afternoon with no symptoms. Pain free after sublingual nitroglycerin - HEART Score: 4 - Troponin 45 minutes after chest pain was negative - EKG: Normal sinus, Bradycardia, no ST depression or elevations. - D Dimer- 520 - with aged adjusted- VTE unlikely. Will hold on CTA at this time - Hemodynamically stable. Hypotension after nitro this had resolved. - Aspirin 324 mg given - Troponin q 6hrs - Nitroglycerin pr as needed for chest pain - Lipid panel and hgb A1C in AM - continue Atorvastatin - Consult Cardiology AM - Echocardiogram ordered - CMP AM HTN continue Losartan Depression/ Anxiety Continue Jolly DVT prophylaxis - Lovenox q24 hrs Disposition- PCU History of Present Illness Primary Care Provider: Lolita Iniguez PA-C 53 y/o male with PMH of HTN, Hyperlipidemia, neuropathy, Anxiety and pre diabetes that presented to the hospital due to chest pain. He complained about chest pain that radiated to his left arm and shoulder blade that woke him. He states some diaphoresis and nausea as well. He had similar pain early in the afternoon of 06/16 that resolved after taking aspirin. He states painting at his house early in the afternoon, denied any symptoms while being active. On my evaluation, pain had resolved after nitro sublingual. States he had similar pain in the past and all workup had been normal, Had a stress test done 3 years ago that was normal. Denied any SOB, or palpitation. Denied any edema on extremities. Denied any smoking. States drink alcohol only socially. Denied any history of MO or stroke. Denied any history of PE or DVT. Allergies Allergy/AdvReac Type Severity Reaction Status Date / Time lisinopril Allergy Unknown Wheezing Verified 06/17/24 02:53 meloxicam Allergy Unknown Diarrhea Verified 06/17/24 02:53 ranitidine [From Zantac] Allergy Wheezing Verified 04/24/25 02:53 Home Medications Medication Instructions Recorded Confirmed Type multivitamin 1 tab PO QAM 03/17/20 06/17/24 History venlafaxine 150 mg 300 mg PO QAM 03/17/20 06/17/24 History capsule,extended release 24 hr atorvastatin 20 mg tablet 10 mg PO QAM 12/11/21 06/17/24 History losartan 50 mg tablet 50 mg PO QAM 12/11/21 06/17/24 History omeprazole 20 mg capsule,delayed 20 mg PO QAM PRN prn 12/11/21 06/17/24 History release ibuprofen 800 mg tablet 800 mg PO DAILY PRN prn 11/20/23 06/17/24 History lithium carbonate 150 mg capsule 150 mg PO QPM 11/20/23 06/17/24 History pregabalin 50 mg capsule 50 mg PO QPM PRN Pain 11/20/23 06/17/24 History donepezil 5 mg tablet 5 mg PO QAM 06/17/24 06/17/24 History tirzepatide (weight loss) 7.5 7.5 mg subcut WK 06/17/24 06/17/24 History mg/0.5 mL subcutaneous pen injector (Zepbound) Past Med/Surg History Problem List (Updated 06/17/24 @ 09:50 by Rajat Pitt PA-C) Hypertension controlled, stable per pt Chest pain (Acute) Status post left hip replacement (~12/2023) Osteoarthritis of left hip Sleep apnea Cognitive dysfunction Amnesia Dyslipidemia (Chronic) no medications Anxiety disorder (Chronic) Depression (Chronic) Medical History Prediabetes GERD (gastroesophageal reflux disease) Lumbar stenosis Lumbar disc disease with radiculopathy Dyslipidemia Osteoarthritis Depression Cognitive dysfunction Anxiety disorder Neurogenic claudication due to lumbar spinal stenosis Obesity Sleep apnea Hypertension History of kidney stones Surgical History History of hernia repair History of appendectomy History of hand surgery History of back surgery Hx of vasectomy History of ankle surgery History of arthroscopy of shoulder History of arthroscopy Social History Smoking Status: Former smoker Tobacco Type: Cigarettes Second Hand Exposure: No; Do You Dip or Chew Tobacco: No; Hx Alcohol Use: Yes Hx Substance Use: No Preferred Language: Danish Communication Ability: Effective Recovery Rn Required: No Beliefs That Will Affect Care: None marital status: Current Living Situation: Spouse Feels Safe at Home: Yes Gender Identity: Male Assistive Devices: Walker Review of Systems Review of Systems: as per HPI Physical Exam Constitutional: WD/WN, vitals as above Eyes: PERRL, conjunctivae normal, anicteric sclerae ENMT: external ear and nose normal, oropharynx normal Respiratory: normal respiratory effort, lungs clear to auscultation Cardiovascular: RRR, no murmur, no edema Gastrointestinal (Abdomen): normal bowel sounds, soft, nontender, no hepatosplenomegaly Skin: no rashes, warm and dry Results & Data Results & Data Vital Signs (Past 12 Hours) Vital Signs Temp Pulse Pulse Resp BP BP Pulse Ox 06/17/24 01:50 65 17 91/69 L 95 06/17/24 01:45 60 16 97/72 L 93 06/17/24 01:42 57 L 06/17/24 01:40 96 06/17/24 01:20 36.5 C 71 18 117/79 96 O2 Del Method 06/17/24 01:50 Room Air 06/17/24 01:45 Room Air 06/17/24 01:42 06/17/24 01:40 Room Air 06/17/24 01:20 Room Air Resident Activity Tracking Resident Involvement: Resident Care Provided Care Provided: Adult Hospital Medicine (1) Chest pain Chest pain type: unspecified Qualified Code(s): R07.9 - Chest pain, unspecified
[2024-06-17 04:10] VITALS: RESP 18
[2024-06-17] MEDS ORDERED: PREGABALIN 50 MG CAP PO PRN (04:36)
[2024-06-17] MEDS ORDERED: ONDANSETRON INJ 2 MG/ML 2 ML VIAL IV PRN (04:36)
[2024-06-17] MEDS ORDERED: MELATONIN 3 MG TAB PO PRN (04:36)
[2024-06-17] MEDS ORDERED: NITROGLYCERIN SL 0.4 MG/TAB TAB SL PRN (04:36)
[2024-06-17] MEDS ORDERED: ACETAMINOPHEN 325 MG TAB PO PRN (04:36)
[2024-06-17] MEDS ORDERED: PANTOprazole 40 MG TAB PO PRN (04:43)
[2024-06-17 04:54] VITALS: O2SAT 97
[2024-06-17 06:28] LABS: Basophils # (auto) 0.03 K/uL (0.00-0.20); Basophils % (auto) 0.5 %; Eosinophils # (auto) 0.12 K/uL (0.00-0.50); Eosinophils % (auto) 1.9 %; Hematocrit (blood only) 41.3 % (42.0-52.0); Hemoglobin 13.7 g/dl (14.0-18.0); Immature Granulocytes # (auto) 0.02 K/uL (0.01-0.20); Immature Granulocytes % (auto) 0.3 %; Lymphocytes # (auto) 2.55 K/uL (1.20-3.40); Lymphocytes % (auto) 41.4 %; Mean Corpuscular Hemoglobin 27.9 pg (25.0-34.0); Mean Corpuscular Hgb Conc 33.2 g/dL (32.0-36.0); Mean Corpuscular Volume 84.1 fL (80.0-100.0); Mean Platelet Volume 10.1 fL (9.4-12.4); Monocytes % (auto) 9.7 %; Neutrophils # (auto) 2.84 K/uL (1.40-6.50); Neutrophils % (auto) 46.2 %; Platelet Count 223 K/uL (130-400); RDW Coefficient of Variation 13.7 % (11.5-14.5); RDW Standard Deviation 42.2 fL (36.4-46.3); Red Blood Count 4.91 M/uL (4.70-6.10); White Blood Count 6.16 K/ul (4.8-10.8)
[2024-06-17 06:36] LABS: BUN Creatinine Ratio 22.5 (10-20); Calcium 8.7 mg/dl (8.6-10.3); Chol HDL Ratio 2.7 (0-5); Creatinine Clr Calc Pharmacy 107.5 ml/min; Magnesium 2.2 mg/dl (1.7-2.4)
[2024-06-17 07:30] VITALS: PULSE 55
[2024-06-17] MEDS: LOSARTAN POTASSIUM 50 MG TAB PO SCH (08:32)
[2024-06-17] MEDS: DONEPEZIL HCL 5 MG TAB PO SCH (08:33)
[2024-06-17] MEDS: VENLAFAXINE HCL XR 150 MG CAPXR PO SCH (08:33)
[2024-06-17] MEDS: ATORVASTATIN 10 MG TAB PO SCH (08:33)
[2024-06-17 08:35] VITALS: BP 129/82; TEMP 97.3
[2024-06-17 09:15] LABS: Estimated Average Glucose 126 mg/dl
--- NOTE | 2024-06-17 09:15 | Cardiology Consultation ---
Date of Consultation June 17, 2024 Assessment & Plan (1) Chest pain: (2) Hypertension: (3) Dyslipidemia: Plan Mr. 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 Patient states that he was in his usual state of health until yesterday at approximately 5:30 p.m. when he was just lying on his couch and developed left chest tightness, it was mild, it did not radiate, nor did he have any associated symptoms. He mentioned hi left chest tightness to his and she gave him a baby aspirin x 1 dose. Left chest tightness gradually resolved over the next 30 minutes. He went about his usual activities without recurrent symptoms. He went to bed at 9:00 p.m. and fell asleep normally. He then awakened with left chest tightness which got progressively worse. His left chest tightness radiated to his left shoulder, left shoulder blade, and left arm and he had associated nausea. At that point he decided to come into our ER. He was given sublingual nitroglycerin 0.4 mg and approximately 10 minutes later his chest tightness/symptoms resolved completely. He has not had any recurrent symptoms since that time. His EKG's have demonstrated sinus bradycardia with heart rates in the mid 50's, no acute changes. These were both normal EKG's. High sensitivity Troponin I levels were < 2.3 pg/mL and < 2.3 pg/mL. Echocardiogram shows normal LV size, wall motion, wall thickness, and normal LV systolic function. LVEF 55% to 60%, no significant valvular abnormalities. 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 Patient is compliant with his medications. We reviewed his cardiac risk factors in detail -- his blood pressure appears to be well controlled. We reviewed his lipid panel which showed a total cholesterol of 97 m/dL, LDL s 24 mg/dL, and HDL is 36 mg/dL. His LDL is at goal range. I have also reassured him that his EKG's have been normal and his high sensitivity Troponin I levels have been undetectable at < 2.3 pg/mL x 2. Heart rhythm is sinus according to his classroom monitor. I have reassured him that his chest tightness is most likely non-cardiac based on his work-up. We discussed other possible causes for his chest tightness. Recommend the following: -- Stress echocardiogram today, quad screen and go. -- Continue Atorvastatin 10 mg daily. -- Continue Losartan 50 mg daily. -- No need for daily aspirin at this point. -- Increase aerobic activities as tolerated following discharge from the hospital. History of Present Illness Reason for Consultation: -- Chest Pain. Requesting Physician: Ariel Juan MD Attending Physician: Melvin Roberts MD History of Present Illness Mr. 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 Patient states that he was in his usual state of health until yesterday at approximately 5:30 p.m. when he was just lying on his couch and developed left chest tightness, it was mild, it did not radiate, nor did he have any associated symptoms. He mentioned hi left chest tightness to his and she gave him a baby aspirin x 1 dose. Left chest tightness gradually resolved over the next 30 minutes. He went about his usual activities without recurrent symptoms. He went to bed at 9:00 p.m. and fell asleep normally. He then awakened with left chest tightness which got progressively worse. His left chest tightness radiated to his left shoulder, left shoulder blade, and left arm and he had associated nausea. At that point he decided to come into our ER. He was given sublingual nitroglycerin 0.4 mg and approximately 10 minutes later his chest tightness/symptoms resolved completely. He has not had any recurrent symptoms since that time. His EKG's have demonstrated sinus bradycardia with heart rates in the mid 50's, no acute changes. These were both normal EKG's. High sensitivity Troponin I levels were < 2.3 pg/mL and < 2.3 pg/mL. Echocardiogram shows normal LV size, wall motion, wall thickness, and normal LV systolic function. LVEF 55% to 60%, no significant valvular abnormalities. 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 Patient is compliant with his medications. He had a negative stress test approximately 3 years ago. Allergies Allergy/AdvReac Type Severity Reaction Status Date / Time lisinopril Allergy Unknown Wheezing Verified 06/17/24 02:53 meloxicam Allergy Unknown Diarrhea Verified 06/17/24 02:53 ranitidine [From Zantac] Allergy Wheezing Verified 06/17/24 02:53 Home Medications Medication Instructions Recorded Confirmed Type multivitamin 1 tab PO QAM 03/17/20 06/17/24 History venlafaxine 150 mg 300 mg PO QAM 03/17/20 06/17/24 History capsule,extended release 24 hr atorvastatin 20 mg tablet 10 mg PO QAM 12/11/21 06/17/24 History losartan 50 mg tablet 50 mg PO QAM 12/11/21 06/17/24 History omeprazole 20 mg capsule,delayed 20 mg PO QAM PRN prn 12/11/21 06/17/24 History release ibuprofen 800 mg tablet 800 mg PO DAILY PRN prn 11/20/23 06/17/24 History lithium carbonate 150 mg capsule 150 mg PO QPM 11/20/23 06/17/24 History pregabalin 50 mg capsule 50 mg PO QPM PRN Pain 11/20/23 06/17/24 History donepezil 5 mg tablet 5 mg PO QAM 06/17/24 06/17/24 History tirzepatide (weight loss) 7.5 7.5 mg subcut WK 06/17/24 06/17/24 History mg/0.5 mL subcutaneous pen injector (Zepbound) Patient History Medical History Prediabetes GERD (gastroesophageal reflux disease) Lumbar stenosis Lumbar disc disease with radiculopathy Dyslipidemia Osteoarthritis Depression Cognitive dysfunction Anxiety disorder Neurogenic claudication due to lumbar spinal stenosis Obesity Sleep apnea Hypertension History of kidney stones Surgical History History of hernia repair History of appendectomy History of hand surgery History of back surgery Hx of vasectomy History of ankle surgery History of arthroscopy of shoulder History of arthroscopy Social History Smoking Status: Former smoker Tobacco Type: Cigarettes Smoking End Date: 30 years ago; Second Hand Exposure: No; Do You Dip or Chew Tobacco: No; Hx Alcohol Use: Yes Hx Substance Use: No Preferred Language: Canadian Communication Ability: Effective Broadcasting Equipment Mechanic Required: No Beliefs That Will Affect Care: None marital status: Current Living Situation: Spouse Other Information That Helps Us Care for You: No Feels Safe at Home: Yes Safety Concerns: Feels Safe At This Time Gender Identity: Male Assistive Devices: Glasses Review of Systems Review of Systems: -- Occasional positional lightheadedness that he attributes to dehydration secondary to Zepbound and his altered diet. -- As per HPI. Physical Exam Physical Exam: Blood pressure is 129/82, pulse is 62 and regular. GENERAL: Patient in no acute distress. HEENT: Head is atraumatic, normocephalic. EOM's intact. Facies symmetric. No perioral cyanosis. NECK: No JVD. JVP is not elevated. Carotid upstrokes are + 2 bilaterally without bruits. CHEST/LUNGS: Clear to auscultation throughout all lung castrejon. No wheezes, rales, or crackles. CVS: S1 and S2 are regular without murmurs, gallops, or rubs. PMI is nonpalpable. No lifts, heaves, or thrills. No abdominal aortic or renal bruits. ABDOMINAL EXAM: Bowel sounds are present. EXTREMITIES: No clubbing or cyanosis. No edema. Extremities are well perfused. NEUROLOGIC EXAM: Patient is awake, alert, and oriented. Pleasant and cooperative. Answers questions appropriately. Speech is clear. STRESS ECHOCARDIOGRAM is pending. Results & Data Vital Signs (Past 12 Hours) Vital Signs Temp Pulse Pulse Resp BP BP Pulse Ox 06/17/24 08:34 36.3 C L 55 L 18 129/82 97 06/17/24 07:30 55 L 06/17/24 04:39 36.5 C 55 L 147/81 H 97 06/17/24 04:22 56 L 06/17/24 04:09 56 L 18 125/83 96 06/17/24 03:14 60 15 115/91 95 06/17/24 01:50 65 17 91/69 L 95 06/17/24 01:45 60 16 97/72 L 93 06/17/24 01:42 57 L 06/17/24 01:40 96 06/17/24 01:20 36.5 C 71 18 117/79 96 O2 Del Method 06/17/24 08:34 Room Air 06/17/24 07:30 06/17/24 04:39 Room Air 06/17/24 04:22 06/17/24 04:09 Room Air 06/17/24 03:14 06/17/24 01:50 Room Air 06/17/24 01:45 Room Air 06/17/24 01:42 06/17/24 01:40 Room Air 06/17/24 01:20 Room Air Laboratory Results Laboratory Results - last 24 hr 06/17/24 06/17/24 01:35 05:50 WBC 7.49 6.16 RBC 5.10 4.91 Hgb 14.3 13.7 L Hct 42.9 41.3 L MCV 84.1 84.1 MCH 28.0 27.9 MCHC 33.3 33.2 RDW Std Deviation 41.7 42.2 RDW Coeff of Ricardo 13.6 13.7 Plt Count 255 223 MPV 9.6 10.1 Immature Gran % (Auto) 0.3 0.3 Neut % (Auto) 50.2 46.2 Lymph % (Auto) 38.5 41.4 [place] % (Auto) 8.8 9.7 Eos % (Auto) 1.7 1.9 Baso % (Auto) 0.5 0.5 Neut # (Auto) 3.76 2.84 Lymph # (Auto) 2.88 2.55 [place] # (Auto) 0.66 H 0.60 H Eos # (Auto) 0.13 0.12 Baso # (Auto) 0.04 0.03 Immature Gran # (Auto) 0.02 0.02 D-Dimer 520 H* Sodium 140 140 Potassium 3.8 4.0 Chloride 107 109 H Carbon Dioxide 29 25 Anion Gap 4 6 BUN 21 20 Creatinine 1.06 0.89 Est Cr Clr Drug Dosing 92.2 107.5 eGFR 82.88 101.20 BUN/Creatinine Ratio 19.8 22.5 H Glucose 94 86 Estimat Average Glucose 126 Hemoglobin A1c 6.0 H Calcium 9.4 8.7 Magnesium 2.2 Total Bilirubin 0.7 AST 22 ALT 23 Alkaline Phosphatase 64 Troponin I High Sens < 2.3 < 2.3 Total Protein 7.2 Albumin 4.3 Globulin 2.9 Albumin/Globulin Ratio 1.5 Triglycerides 187 H Cholesterol 97 LDL Cholesterol, Calc 24 VLDL Cholesterol, Calc 37 H HDL Cholesterol 36 Cholesterol/HDL Ratio 2.7 Lipase 99 H Rison Pending Diagnostic Findings CXR 06/17/24: 1. Bilateral increased bronchovascular markings. 2. No acute cardiopulmonary abnormalities are identified. 3. No significant interval changes. Medications Administered Medication List Atorvastatin Calcium (At[facility]vastatin 10 Mg Tab) [facility] [place]: 07/17/24 08:59 Last Admin: 06/17/24 08:33 Dose: 10 mg Documented By: JO Donepezil HCl (Donepezil Hcl 5 Mg Tab) 5 [facility] [place]: 07/17/24 08:59 Last Admin: 06/17/24 08:33 Dose: 5 mg Documented By: JO Losartan Potassium (Losartan Potassium 50 Mg Tab) [facility] [place] Stop: 07/17/24 08:59 Last Admin: 06/17/24 08:32 Dose: 50 mg Documented By: JO Venlafaxine HCl (Venlafaxine Hcl Xr 150 Mg Capxr) 300 mg PO [facility] Stop: 07/17/24 08:59 Last Admin: 06/17/24 08:33 Dose: 300 mg Documented By: JO Discontinued Medications Aspirin (Aspirin Chew 324 Mg) 324 mg PO NOW STA Stop: 06/17/24 01:33 Last Admin: 06/17/24 01:38 Dose: 324 mg Documented By: ISAAC Sodium Chloride (Nss) 500 mls @ 999 mls/hr IV .Q31M ONE Stop: 06/17/24 02:41 Last Infusion: 06/17/24 02:10 Dose: Infused Documented By: Admin: 06/17/24 01:50 Dose: 999 mls/hr Documented By: ADDISON Nitroglycerin (Nitroglycerin Sl 0.4 Mg/Tab Tab) 0.4 mg SL Q5M PRN PRN Reason: Chest Pain Stop: 07/17/24 01:31 Last Admin: 06/17/24 01:39 Dose: 0.4 mg Documented By: ISAAC PG Care Time/CCT Total # of Minutes Spent Total Time Spent with Patient: Total time spent is greater than 50% in coordination of care (as documented) at patient's floor/unit and/or counseling patient:25 [place] [address] IN/OBS CONSULT LVL 4,60M Patient Type New History Detailed Exam Detailed Medical Decision Making Moderate Complexity Diagnoses Chest pain R07.9 Chest pain type: unspecified Primary hypertension I10 Hypertension type: primary hypertension Dyslipidemia E78.5 Time Spent (min) 64 (1) Chest pain Chest pain type: unspecified Qualified Code(s): R07.9 - Chest pain, unspecified (2) Hypertension Hypertension type: primary hypertension Qualified Code(s): I10 - Essential (primary) hypertension
--- NOTE | 2024-06-17 09:20 | XCELERA ---
[id number] \\[id number]
--- NOTE | 2024-06-17 10:51 | Electrocardiogram Report ---
Test Reason : Blood Pressure : */* mmHG Vent. Rate : 54 BPM Atrial Rate : 54 BPM P-R Int : 144 ms QRS Dur : 92 ms QT Int : 448 ms P-R-T Axes : 20 0 30 degrees QTcB Int : 424 ms Sinus bradycardia Otherwise normal ECG When compared with ECG of 17-Jun-2024 01:27, (unconfirmed) No significant change was found Confirmed by Melvin Roberts ([id number]) on 06/17/2024 10:50:58 AM Referred By: REFERRED SELF Confirmed By: Melvin Roberts
--- NOTE | 2024-06-17 10:51 | Electrocardiogram Report ---
Test Reason : Blood Pressure : */* mmHG Vent. Rate : 55 BPM Atrial Rate : 55 BPM P-R Int : 138 ms QRS Dur : 94 ms QT Int : 444 ms P-R-T Axes : 22 -4 39 degrees QTcB Int : 424 ms Sinus bradycardia RSR' or QR pattern in V1 suggests right ventricular conduction delay Borderline ECG When compared with ECG of 17-Jun-2024 02:04, (unconfirmed) No significant change was found Confirmed by Melvin Roberts ([id number]) on 06/17/2024 10:51:14 AM Referred By: REFERRED SELF Confirmed By: Melvin Roberts
--- NOTE | 2024-06-17 10:51 | Electrocardiogram Report ---
Test Reason : Blood Pressure : */* mmHG Vent. Rate : 55 BPM Atrial Rate : 55 BPM P-R Int : 150 ms QRS Dur : 90 ms QT Int : 420 ms P-R-T Axes : 32 7 45 degrees QTcB Int : 401 ms Sinus bradycardia Otherwise normal ECG When compared with ECG of 01-Dec-2023 09:33, No significant change was found Confirmed by Melvin Roberts ([id number]) on 06/17/2024 10:50:53 AM Referred By: REFERRED SELF Confirmed By: Melvin Roberts
--- NOTE | 2024-06-17 11:30 | XCELERA ---
[id number]
[2024-06-17] MEDS: ENOXAPARIN INJ 40 MG/0.4 ML SYR SQ SCH (13:18)
--- NOTE | 2024-06-17 13:19 | Discharge Summary ---
Discharge Summary Date of Service June 17, 2024 Principal Dx & Hospital Course #1 = Principal Diagnosis (1) Chest pain: (2) Hypertension: (3) GERD (gastroesophageal reflux disease): Chad Johnston is a 53-year-old male with past medical history of hypertension, YURIY, lumbar stenosis, anxiety/depression who presented to the ER for evaluation of chest pain with onset while he was sitting on his couch. This was mild without radiation or association with shortness of breath. Resolved over 30 minutes. Had a recurrent episode overnight with less chest tightness and presented to the ER. Was given nitro and had complete resolution of symptoms. EKG did not show any acute territorial ischemia, high sensitive troponin x 2 was undetectable. Echo showed LVEF 55 to 60% and no significant abnormalities. Due to his recurrent chest pain at rest patient was further risk ratified with a stress echocardiogram. This achieved 7 METS with no EKG changes suggestive of ischemia, some exercise-induced chest discomfort, and a normal echo. Case was reviewed by cardiology and patient was felt to be safe for discharge home. No evidence of cardiac disease. There is no evidence of pericardial effusion. He did have a D-dimer of 520 which was age-adjusted normal. He did not have any hypoxia, tachycardia, or leg swelling. At time of discharge reassessment he was able to take full deep breaths without any inspiratory/pruritic pain, O2 sat was 97% on room air, pulse was 50s. He did not have any leg swelling, calf asymmetry or leg swelling. He felt that he had returned back to his normal baseline with no ongoing symptoms. He is scheduling a follow-up with the [facility], has follow-up in July but has already called for an appointment for follow-up within approximately 1 week. Suspected to have noncardiac chest pain,? MSK. Admission HPI Per Admitting Provider 53 y/o male with PMH of HTN, Hyperlipidemia, neuropathy, Anxiety and pre diabetes that presented to the hospital due to chest pain. He complained about chest pain that radiated to his left arm and shoulder blade that woke him. He states some diaphoresis and nausea as well. He had similar pain early in the afternoon of 06/16 that resolved after taking aspirin. He states painting at his house early in the afternoon, denied any symptoms while being active. On my evaluation, pain had resolved after nitro sublingual. States he had similar pain in the past and all workup had been normal, Had a stress test done 3 years ago that was normal. Denied any SOB, or palpitation. Denied any edema on extremities. Denied any smoking. States drink alcohol only socially. Denied any history of MT or stroke. Denied any history of PE or DVT. Discharge Exam General: A&Ox3. NAD. Cooperative. HEENT: Atraumatic, normocephalic. Vision and hearing grossly intact Pulm: CTAB A&P. -wheezes, -rales, -rhonchi. Symmetrical chest rise. No increased work of breathing. No respiratory distress. Cardiac: RRR, -mrg. Radial pulses intact and symmetrical. Abdominal: Nontender, nondistended, soft. BS present. Extremities: Warm, dry. No calf asymmetry. No lower extremity edema Discharge Plan Discharge Items Patient Disposition: Home - Self-Care Reason For Visit: CHEST PAIN Discharge Diagnosis: Noncardiac chest pain Condition on Discharge: Good Activity: Resume your previous activity Non-emergency contact: Primary Care Provider Call non-emergency contact if: you have any medication questions, your symptoms worsen and your pain is not controlled Follow-up/Referrals: Lolita Iniguez PA-C [Primary Care Provider] - Diet: Regular Addtl Attending Provider Instructions: You were seen in the hospital for chest pain. Your troponins (heart markers) were undetectable/normal. Your EKG did not show any evidence of heart attack. You underwent a stress test which did not show any evidence of ischemic disease. Your case was reviewed with cardiology and you are recommended for discharge home. At time of discharge you are breathing comfortably with no pain, your oxygen levels were normal, your blood pressure and heart rate were normal. During admission you had an age-adjusted normal D-dimer of 520. You did not have any pleuritic/inspiratory pain, leg swelling, calf tenderness, tachycardia, or low oxygen levels suggestive of a blood clot. If any of the symptoms develop please seek immediate medical reattention and further evaluation. If you develop any new or worsening symptoms including fever, chills, sweats, ch est pain, chest pressure, difficulty breathing, uncontrolled nausea/vomiting, rash, wheezing, passing out or nearly passing out, bleeding, black/bloody bowel movements, or other new or concerning symptoms please call your primary care physician, or call 911 for re-evaluation in the emergency department if you are very concerned. Pending Studies at Discharge: No Stand-Alone Forms: My [facility], Smoking Cessation Medications and DC Order Prescriptions: Continued atorvastatin 20 mg tablet 10 mg PO QAM losartan 50 mg tablet 50 mg PO QAM omeprazole 20 mg capsule,delayed release(DR/EC) 20 mg PO QAM PRN (Reason: prn) multivitamin Tablet 1 tab PO QAM venlafaxine 150 mg Capsule,Extended Release 24hr 300 mg PO QAM ibuprofen 800 mg Tablet 800 mg PO DAILY PRN (Reason: prn) lithium carbonate 150 mg Capsule 150 mg PO QPM pregabalin 50 mg Capsule 50 mg PO QPM PRN (Reason: Pain) Zepbound 7.5 mg/0.5 mL Pen Injector 7.5 mg SUBCUT WK Rx Instructions: friday donepezil 5 mg Tablet 5 mg PO QAM Discharge Orders: Discharge Order (Routine); Ordered 06/17/24 Ordered By: Ariel Law/Other Patient Handouts: Triglycerides, Prediabetes Admission Data Admit Date/Time: 06/17/24 03:29 Attending Provider: Ariel Juan Admit Provider: rTu Morris Primary Care Provider: Lolita Iniguez Other Providers: Mary Rodriguez; Rajat Pitt; Juan R Guzman; Melvin Roberts; Moises Trimble; Taran Maldonado; Joss Currie Jr; Willie Navarro; Thalia Day; Francy Marie; Cesar Cheung; Cesar Verdugo; Kanika Shaikh; Ashvin Vila; Ann Lima; Ashvin Valdovinos; Guillermo Cohn; Teodoro Verdugo Hospital Stay Data Consultations 06/17/24 02:45 ED Decision to Admit Stat 06/17/24 04:36 Consult Cardiology Routine Discharge Instructions Given to Patient (Per Discharging Provider) You were seen in the hospital for chest pain. Your troponins (heart markers) were undetectable/normal. Your EKG did not show any evidence of heart attack. You underwent a stress test which did not show any evidence of ischemic disease. Your case was reviewed with cardiology and you are recommended for discharge home. At time of discharge you are breathing comfortably with no pain, your oxygen levels were normal, your blood pressure and heart rate were normal. During admission you had an age-adjusted normal D-dimer of 520. You did not have any pleuritic/inspiratory pain, leg swelling, calf tenderness, tachycardia, or low oxygen levels suggestive of a blood clot. If any of the symptoms develop please seek immediate medical reattention and further evaluation. If you develop any new or worsening symptoms including fever, chills, sweats, chest pain, chest pressure, difficulty breathing, uncontrolled nausea/vomiting, rash, wheezing, passing out or nearly passing out, bleeding, black/bloody bowel movements, or other new or concerning symptoms please call your primary care physician, or call 911 for re-evaluation in the emergency department if you are very concerned. Total Time Total Time Spent Total Time Spent (In Minutes): Time spend day of discharge 40 minutes including direct patient care, documentation, review of labs and images, and coordination of care. Coding Level of Care Code 12163 INP/OBS DISCH >30 MIN Diagnoses Chest pain R07.9 Chest pain type: unspecified Primary hypertension I10 Hypertension type: primary hypertension GERD (gastroesophageal reflux disease) K21.9
[2024-06-17] MEDS ORDERED: LITHIUM CARBONATE 300 MG TAB PO SCH (21:00)
--- NOTE | 2024-06-18 02:02 | Billing Data ---
Date of Service June 18, 2024 Coding Level of Care Code 73987 INT INP/OBS CARE
== END 2024-06-17 14:18 | disposition home or self-care (01) | DRG 311 ==
LOC: ED 01:14 → 4W 03:29 → SUATTDRO 03:29 → 4W 04:09
DX: R73.03 Prediabetes; G62.9 Polyneuropathy, unspecified; K21.9 Gastro-esophageal reflux disease without esophagitis; G47.33 Obstructive sleep apnea (adult) (pediatric); Z96.642 Presence of left artificial hip joint; Z87.891 Personal history of nicotine dependence; Z79.899 Other long term (current) drug therapy; F41.9 Anxiety disorder, unspecified; E78.5 Hyperlipidemia, unspecified; F32.A Depression, unspecified; I10 Essential (primary) hypertension; Z88.8 Allergy status to other drugs, medicaments and biological substances; I20.0 Unstable angina; M48.061 Spinal stenosis, lumbar region without neurogenic claudication